=== PATIENT | female | born 1985 | race Caucasian/White ===

== ENCOUNTER 2019-12-24 16:46 | Inpatient (IN) | payer BC, SELFPAY ==
--- NOTE | ~2019-12-24 | CT_ITS ---
EXAMINATION: CT abdomen pelvis w con EXAM DATE: 12/24/2019 18:33 INDICATION: Epigastric pain. TECHNIQUE: Spiral CT of the abdomen and pelvis was performed following intravenous injection of 100 m L Omnipaque 350. Axial, coronal and sagittal images were reviewed. The dose-length product (DLP) fo r this examination was 214.22 mGy-cm. The exposure was tailored according to patient size (auto mA e xposure control), and iterative reconstruction (ASIR) was used as additional dose reduction technique . Comparison is made to prior examination from 07/10/2018. FINDINGS: There is a left liver lobe medial segmental lesion measuring 2.6 cm, with central hypodensi ty which could be a scar. Appearance is consistent with focal nodular hyperplasia, but not diagnostic of that, and cannot identify this on the previous examination. A follow-up nonemergent liver MRI exa mination is recommended for added specificity. There is mild periportal edema. The liver, spleen, adrenal glands and pancreas are otherwise unremarkable. Gallbladder is unremarkab le. No biliary obstruction. Portal and splenic veins are patent. Kidneys enhance symmetrically. T here is no hydronephrosis. The uterus is unremarkable. Small free pelvic fluid. The bladder is und istended at time of imaging. There is no retroperitoneal or pelvic lymphadenopathy. The appendix is normal. The stomach and small bowel are unremarkable. There is moderate amount of c olonic stool. No free intraperitoneal gas. The heart is normal in size. There are no pericardial or pleural effusions. The lung bases are unremarkable. Interval development of mild compression fr acture at the superior endplate of T12, but this does appear chronic. IMPRESSION: 1. Left liver lobe indeterminate lesion, could be focal nodular hyperplasia but follow-up liver MRI examination with contrast is recommended. 2. Nonspecific mild periportal edema. Reviewed, dictated and finalized at location A. DEVELOPER IMPRESSION: 1. Left liver lobe indeterminate lesion, could be focal nodular hyperplasia bu t follow-up liver MRI examination with contrast is recommended. 2. Nonspecific mild periportal edema.
--- NOTE | ~2019-12-24 | US_ITS ---
EXAMINATION: US venous doppler [facility] DATE: 12/26/2019 12:19 INDICATION: Lower limb pain. TECHNIQUE: Grayscale ultrasound images without and with compression and Doppler ultrasound images of the bilateral lower extremity veins were obtained. COMPARISON: None. FINDINGS: The visualized portions of right common femoral vein, profunda (deep) femoral vein, femoral vein, pop liteal vein, peroneal veins, posterior tibial veins, and greater saphenous vein outflow are patent. The visualized portions of left common femoral vein, profunda femoral vein, femoral vein, popliteal v ein, peroneal veins, posterior tibial veins, and greater saphenous vein outflow are patent. IMPRESSION: 1. No deep venous thrombosis. Reviewed, dictated and finalized at location A. 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
--- NOTE | ~2019-12-24 | XR_ITS ---
EXAMINATION: XR chest 2V EXAM DATE: 12/24/2019 18:38 INDICATION: Fever, pain under ribs. On immunosuppressive therapy. TECHNIQUE: Frontal and lateral projections of the chest obtained and reviewed. There is no prior juan jose dy for comparison. FINDINGS: The lungs are clear. There are no pleural effusions. The cardiomediastinal silhouette is within normal limits. There is no pneumothorax suspected. The bones and soft tissues are unremarkab le. IMPRESSION: Normal chest x-ray exam. Reviewed, dictated and finalized at location A. CTOR FIXED INCOME IMPRESSION: Normal chest x-ray exam.
--- NOTE | ~2019-12-24 | MR_ITS ---
EXAMINATION: MR abdomen wo/w con DATE: 12/25/2019 09:52 INDICATION: Liver mass. TECHNIQUE: Magnetic resonance imaging (MRI) of the abdomen was performed without and with 10 mL Multi Lucero intravenous contrast. Sequences included coronal T2-weighted FS FSE, coronal and axial FS FIEST A, axial T2-weighted FSE, coronal LAVA-flex, axial STIR FSE, axial DWI, axial dual-echo T1-weighted F SPGR, and axial LAVA. Postcontrast sequences included coronal LAVA-flex and a time course of axial LA VA. COMPARISON: CT abdomen and pelvis 12/24/2019, 07/10/2018 FINDINGS: The liver demonstrates periportal edema. In segment V of the liver, there is a 2.1 cm mass that demon strates peripheral increased T2-weighted signal intensity and enhancement and a 0.8 cm area of centra l nonenhancement. There is thrombus in right hepatic artery. The gallbladder is normal in size and de monstrates wall thickening, likely interstitial edema. The spleen, pancreas, adrenal glands, and left kidney are normal. There is a 4 mm cyst in right kidney. There are no dilated loops of bowel. There are no pathologically enlarged lymph nodes. There is no free intraperitoneal fluid. IMPRESSION: 1. Thrombus in right hepatic artery. 2. 2.1 cm cystic mass in right hepatic lobe, likely an infarct or abscess. Necrotic neoplasm cannot b e excluded. Consider abdomen MRI without and with contrast in 3 months. Reviewed, dictated and finalized at location A. ASSOC IMPRESSION: 1. Thrombus in right hepatic artery. 2. 2.1 cm cystic mass in right hepatic lobe, likely an infarct or abscess. Necr otic neoplasm cannot be excluded. Consider abdomen MRI without and with contras t in 3 months.
--- NOTE | ~2019-12-24 | CT_ITS ---
EXAMINATION: CT abdomen w con DATE: 12/28/2019 08:23 INDICATION: Right upper quadrant abdominal pain. Liver abscess. TECHNIQUE: Computed tomography (CT) of the abdomen was performed with 100 mL Omnipaque 350 intravenou s contrast. Automated exposure control and iterative reconstruction technique were employed. The dose -length product was 123.06 mGy-cm. COMPARISON: CT abdomen and pelvis 12/24/2019, abdomen MRI 12/25/2019 FINDINGS: The visualized portions of the lung bases demonstrate mild atelectasis. There are small rig ht and trace left pleural effusions. The heart size is normal. No pericardial effusion. There is a 2. 2 cm mass in right hepatic lobe in segment V with hypoattenuating periphery and 1.1 cm central cystic area. The portal vein branches in medial segment right hepatic lobe are small in caliber. There is p eriportal low attenuation in medial segment right hepatic lobe. The gallbladder, liver, pancreas, adr enal glands, and kidneys are normal. There are no dilated loops of bowel. There is subcutaneous gas i n anterior abdominal wall, likely injection sites. There are no pathologically enlarged lymph nodes. There is no free intraperitoneal fluid. There is a chronic compression fracture of T12. IMPRESSION: 1. 2.2 cm cystic mass in right hepatic lobe, stable from 12/24/19, likely an infarct or abscess. Necrot ic neoplasm cannot be excluded. Consider abdomen MRI without and with contrast in 3 months. 2. Stable periportal low attenuation in medial segment right hepatic lobe, likely edema or infarct. Reviewed, dictated and finalized at location A. G[employer] MARKET[employer]UNICATION IMPRESSION: 1. 2.2 cm cystic mass in right hepatic lobe, stable from 12/24/19, likely an infa rct or abscess. Necrotic neoplasm cannot be excluded. Consider abdomen MRI with out and with contrast in 3 months. 2. Stable periportal low attenuation in medial segment right hepatic lobe, like ly edema or infarct.
[2019-12-24 16:51] VITALS: BP 111/73; PULSE 119; RESP 15; TEMP 38.7; O2SAT 100
--- NOTE | 2019-12-24 17:23 | ED.FEVER ---
HPI - Fever General Chief Complaint: Fever Stated Complaint: FEVER Time Seen by Provider: 12/24/19 17:15 History of Present Illness HPI Narrative: Fever and body aches for the past 4 days. SHe has had some mild nasal congestion and epigastric pain with nausea. Otherwise she denies any other specific symptoms. No cough, diarrhea, constipation, dysuria, hematuria. No previous surgeries. She has had 2 negative flu swabs. She was seen by her PCP today and they were concerned about possible pyelonephritis. She is on immunosuppressive medications 2/2 lupus. Related Data Home Medications Medication Instructions Recorded Confirmed alprazolam 0.5 mg tablet 0.5 mg PO TID 12/24/19 belimumab 200 mg/mL subcutaneous 200 mg SUB-Q WEEKLY 12/24/19 syringe drospirenone 3 mg-ethinyl 1 tablet PO DAILY 12/24/19 estradiol 0.02 mg tablet fluoxetine 40 mg capsule 80 mg PO QAM cap 12/24/19 gabapentin 800 mg tablet 800 mg PO TID 12/24/19 hydroxychloroquine 200 mg tablet 200 mg PO BID 12/24/19 mycophenolate mofetil 500 mg tablet 1,500 mg PO Q12H 12/24/19 Allergies Allergy/AdvReac Type Severity Reaction Status Date / Time ciprofloxacin Allergy Unknown unknown Verified 12/24/19 17:10 codeine Allergy Unknown unknown Verified 12/24/19 17:10 sulfamethizole Allergy Unknown unknown Verified 12/24/19 17:10 sulfamethoxazole Allergy Unknown RASH Verified 12/24/19 17:10 trimethoprim Allergy Unknown Unknown Verified 12/24/19 17:10 Review of Systems Review of Systems: All systems reviewed & are unremarkable except as noted in HPI and below Constitutional: Constitutional: Reports chills, Reports fatigue and Reports fever(s) ENT: Reports nasal congestion and Denies sore throat Cardiovascular: Cardiovascular: Denies chest pain Respiratory: Respiratory: Denies chest congestion, Denies cough, Denies dyspnea and Denies wheezing Gastrointestinal: Gastrointestinal: Denies constipation, Denies diarrhea, Reports nausea and Denies vomiting Genitourinary: Genitourinary: Denies hematuria, Denies dysuria, Denies pelvic pain, Reports flank pain and Denies vaginal discharge Musculoskeletal: Musculoskeletal: Reports back pain Neurologic: Denies dizziness and Reports headache(s) [facility] Surgical History Surgical History History of rhinoplasty Family History Family History Father Hypertension Family history of diabetes mellitus in first degree relative Social History Social History Smoking packs per day: 0.5 Smoking cigarettes per day: 10.0 Years smoked: 3 Smoking pack-years: 1.50 Smoking status: Former smoker Tobacco type: cigarettes Second hand tobacco smoke exposure: No Smoking end date: 10/24/09 Alcohol intake: never Substance use: never Substance use type: does not use Gender identity (if verbalized by the patient): Female Exam Const: General: healthy appearing, no acute distress and alert Nutritional Appearance: well nourished Orientation/consciousness: patient oriented x3 HENMT: Head: normal to inspection Eyes: Conjunctivae: conjunctivae normal Pupils: Equal, round and reactive pupils present EOM: EOMs intact bilaterally Neck: Neck: normal visual inspection and no lymphadenopathy Resp: Effort & Inspection: normal respiratory effort Auscultation: clear to auscultation bilaterally Cardio: Rate: tachycardic Rhythm: regular rhythm GI: Inspection: non-distended GI Palp: Yes Soft to palpation, Yes Tenderness to palpation present (GI) (epigastric, mild), No Guarding due to palpation present (GI) and No Rebound tenderness present Skin: General skin exam: normal color Rashes: no rashes Wounds: no wounds Neuro: General: patient oriented x3, moves all extremities and no focal motor deficits Speech: normal speech Extrem: General: normal t
[2019-12-24 17:48] LABS: Basophils Percent Auto 0.3 % (0.2-1.2); Eosinophils Percent Auto 1.2 % (0-4.4); Hematocrit 37.3 % (37.0-47.0); Hemoglobin 12.2 g/dL (12.0-15.0); Immature Granulocyte Absolute 0.02 K/mm3 (0.00-0.031); Immature Granulocyte Percent A 0.6 % (0-0.5); Lymphocytes Absolute Auto 0.31 K/mm3 (0.9-3.2); Lymphocytes Percent Auto 9.2 % (18.3-44.2); Mean Corpuscular HGB Conc 32.7 g/dl (32-36); Mean Corpuscular Hemoglobin 30.6 pg (26-34); Mean Corpuscular Volume 93.5 fl (80-100); Mean Platelet Volume 10.2 fl (7.4-10.4); Monocytes Absolute Auto 0.4 K/mm3 (0.1-0.6); Monocytes Percent Auto 11.3 % (2.6-8.5); Neutrophils Absolute Auto 2.6 K/mm3 (1.3-6.7); Neutrophils Percent Auto 77.4 % (45.5-73.1); Platelet Count Result 187 k/mm3 (150-375); Red Blood Count 3.99 M/mm3 (4.2-5.4); Red Cell Distribution Width 11.9 % (11.5-14.5); White Blood Count 3.4 K/mm3 (4.5-10.0)
[2019-12-24] MEDS: SODIUM CHLORIDE 0.9% IV 1,000 ML 999 ML IV CONT (17:50)
[2019-12-24] MEDS: KETOROLAC 30 MG/ML VIAL (*BKC) IV PUSH (17:53)
[2019-12-24] MEDS: METOCLOPRAMIDE HCL INJ 10 MG/2 ML VIAL IV PUSH (17:54)
[2019-12-24 17:57] LABS: INR 0.9; Prothrombin Time 11.9 Seconds (11.1-14.7)
[2019-12-24 17:58] LABS: Partial Thromboplastin Time 29.6 SECONDS (22.3-36.8)
[2019-12-24 18:02] LABS: Alanine Aminotransferase 24 U/L (4-35); Albumin Level 3.8 g/dL (3.5-5.1); Alkaline Phosphatase 72 U/L (38-126); Aspartate Amino Transferase 40 U/L (14-36); Bilirubin,Total 0.4 mg/dL (0.2-1.3); Blood Urea Nitrogen 5 mg/dL (7-17); CRP 6.6 mg/dL (<1.0); Calcium 8.2 mg/dL (8.4-10.2); Carbon Dioxide 22 mmol/L (22-30); Chloride 96 mmol/L (98-107); Estimated CRCL calculation 93 ml/min; Estimated Glomerular Filt Rate > 60; Glucose 98 mg/dL (65-105); Potassium 3.5 mmol/L (3.4-5.0); Sodium 131 mmol/L (137-145)
[2019-12-24 18:09] LABS: Lactic Acid Reflex 1.2 mmol/L (0.7-2.1)
[2019-12-24 18:12] LABS: Add Urine Microscopic? YES; Appearance Urine Clear (Clear); Bacteria Urine Trace /hpf; Bilirubin Urine Negative (Negative); Blood Urine Negative (Negative); Color Urine Yellow (Yellow); Glucose Urine UA Negative (Negative); Ketones Urine Negative (Negative); Leukocyte Esterase Ur 1+ LEU/UL (Negative); Mucus Urine Rare /lpf; Nitrate Urine Negative (Negative); Protein Urine Negative (Negative); Specific Grav Ur 1.013 (1.001-1.035); Squamous Epithelial Cell Urine Many /hpf (Few); Urobilinogen Urine Negative mg/dL (<2.0)
--- NOTE | 2019-12-24 20:29 | PM.IMHP ---
H&P: HPI History of Present Illness Chief complaint: febrile illness,liver lesion Narrative: This is a 34 year old female with known history of SLE and Sjogren syndrome who presented to the hospital with a complaint of fever, epigastric pain, and body aches for the past 4 days. Associated symptoms include nausea but no vomiting or diarrhea. She denies any coughing. No burning urination or urinary frequency is reported. She complains of right lower back pain. She also complains of aches and pains diffusely. The patient is chronically on immunosuppressive medications for her SLE. Tonight while in the ER the patient was incidently found to have a left liver lobe indeterminate lesion with nonspecific mild periportal edema. No other complaints tonight. Review of Systems Review of Systems: All systems reviewed & are unremarkable except as noted in HPI and below PMFSH Surgical History Surgical History History of rhinoplasty Family History Family History Father Hypertension Family history of diabetes mellitus in first degree relative Social History Social History Smoking packs per day: 0.5 Smoking cigarettes per day: 10.0 Years smoked: 3 Smoking pack-years: 1.50 Smoking status: Never smoker Tobacco type: cigarettes Second hand tobacco smoke exposure: No Smoking end date: 10/24/09 Alcohol intake: current Substance use: current Substance use type: does not use Gender identity (if verbalized by the patient): Female Spiritual care concerns: No Agree to blood products: Yes Meds Home Medications and Allergies Home Medications Medication Instructions Recorded Confirmed Type alprazolam 0.5 mg tablet 0.5 mg PO TID PRN 12/24/19 12/24/19 History belimumab 200 mg/mL subcutaneous 200 mg SUB-Q WEEKLY 12/24/19 12/24/19 History syringe drospirenone 3 mg-ethinyl 1 tablet PO DAILY 12/24/19 12/24/19 History estradiol 0.02 mg tablet fluoxetine 40 mg capsule 80 mg PO QAM cap 12/24/19 12/24/19 History gabapentin 800 mg tablet 800 mg PO TID 12/24/19 12/24/19 History hydroxychloroquine 200 mg tablet 200 mg PO BID 12/24/19 12/24/19 History mycophenolate mofetil 500 mg tablet 1,500 mg PO Q12H 12/24/19 12/24/19 History Allergies Allergy/AdvReac Type Severity Reaction Status Date / Time ciprofloxacin Allergy Unknown unknown Verified 12/24/19 17:10 codeine Allergy Unknown unknown Verified 12/24/19 17:10 sulfamethizole Allergy Unknown unknown Verified 12/24/19 17:10 sulfamethoxazole Allergy Unknown RASH Verified 12/24/19 17:10 trimethoprim Allergy Unknown Unknown Verified 12/24/19 17:10 Vital Signs Vital Signs - 24 hr 12/24/19 16:51 Temperature 38.7 C H Pulse Rate 119 H Respiratory Rate 15 Blood Pressure 111/73 Pulse Oximetry 100 Exam Const: General: cooperative, no acute distress, alert and awake Nutritional Appearance: well nourished Orientation/consciousness: patient oriented x3 HENMT: Head: normal to inspection General nose exam: Normal external nose present Face and sinus: normal facial exam Mouth: Yes Normal oral and palatal mucosa present and Yes oropharynx normal Eyes: Pupils: Equal, round and reactive pupils present EOM: EOMs intact bilaterally Neck: Neck: supple and no JVD Thyroid: thyroid normal Lymphatic: lymphadenopathy not noted Resp: Effort & Inspection: normal respiratory effort Auscultation: clear to auscultation bilaterally Cardio: Rate: regular rate Rhythm: regular rhythm Heart sounds: no murmurs GI: Inspection: normal to inspection Auscultation: normal bowel sounds Skin: General skin exam: normal color and no rashes or lesions noted Neuro: General: patient oriented x3 Cranial nerves: Yes CN's II-XII intact bilaterally and Yes Equal, round and reactive pupils present Speech: normal speech M
[2019-12-24 21:01] VITALS: BP 110/54; PULSE 81; RESP 20; TEMP 36.7; O2SAT 99; BMI 19.5
--- NOTE | 2019-12-24 21:21 | ADMGEN ---
This patient, Nehal Grier, was admitted to 2 Medical Room 260-. Patient/family oriented to hospital policies and general routines including ID bracelet, bed and alarms, visiting hours, pain management, procedures, bathroom and other care routines, personal items, smoking policy, room service/diet, and visiting hours. Valuables list has been completed. Information on how to activate the Rapid Response Team has been discussed. Patient/Family are encouraged to report perceived risks to care and to ask questions if they do not understand what they are told or what they should do.
[2019-12-24] MEDS: LACTATED RINGERS 1,000 ML 125 ML IV CONT (21:40)
[2019-12-25 04:00] VITALS: BP 98/57; PULSE 87; RESP 18; TEMP 37.2; O2SAT 100
[2019-12-25 05:29] LABS: Basophils Percent Auto 0.6 % (0.2-1.2); Eosinophils Absolute Auto 0.1 K/mm3 (0-0.3); Eosinophils Percent Auto 1.8 % (0-4.4); Hematocrit 32.2 % (37.0-47.0); Hemoglobin 10.4 g/dL (12.0-15.0); Immature Granulocyte Absolute 0.01 K/mm3 (0.00-0.031); Immature Granulocyte Percent A 0.3 % (0-0.5); Lymphocytes Absolute Auto 0.36 K/mm3 (0.9-3.2); Lymphocytes Percent Auto 10.8 % (18.3-44.2); Mean Corpuscular HGB Conc 32.3 g/dl (32-36); Mean Corpuscular Hemoglobin 30.2 pg (26-34); Mean Corpuscular Volume 93.6 fl (80-100); Mean Platelet Volume 10.1 fl (7.4-10.4); Monocytes Absolute Auto 0.4 K/mm3 (0.1-0.6); Monocytes Percent Auto 10.8 % (2.6-8.5); Neutrophils Absolute Auto 2.5 K/mm3 (1.3-6.7); Neutrophils Percent Auto 75.7 % (45.5-73.1); Platelet Count Result 152 k/mm3 (150-375); Red Blood Count 3.44 M/mm3 (4.2-5.4); Red Cell Distribution Width 11.9 % (11.5-14.5); White Blood Count 3.3 K/mm3 (4.5-10.0)
[2019-12-25 05:39] LABS: Blood Urea Nitrogen 3 mg/dL (7-17); Calcium 7.7 mg/dL (8.4-10.2); Carbon Dioxide 23 mmol/L (22-30); Chloride 100 mmol/L (98-107); Estimated CRCL calculation 107 ml/min; Estimated Glomerular Filt Rate > 60; Glucose 100 mg/dL (65-105); Potassium 3.5 mmol/L (3.4-5.0); Sodium 134 mmol/L (137-145)
[2019-12-25] MEDS: LACTATED RINGERS 1,000 ML 125 ML IV CONT (05:48)
[2019-12-25] MEDS: GABAPENTIN 400 MG CAPSULE 800 MG PO ×3 (10:12→17:38)
[2019-12-25] MEDS: HYDROXYCHLOROQUINE SULFATE 200 MG TABLET PO ×2 (10:13→17:38)
--- NOTE | 2019-12-25 10:13 | PM.IMPN ---
Progress Note: A&P Assessment and Plan (1) Acute febrile illness: Code(s): R50.9 - Fever, unspecified Status: Acute Assessment and Plan: The patient appears to have a febrile viral illness w/ epigastric discomfort, fever, aches and pains. CT abd/pelvis only demonstrated a liver lesion of unknown duration. The patient could have enteritis with her current symptoms. Broad spectrum antibitoics were empirically started in the ER. We will obtain blood cultures and wean off of antibiotics when appropriate. She is feeling slightly better today. Last recorded fever was yesterday at 1700 and she had slight fever/diaphoresis last night. Due to being immunocompromised, continued fevers will continue monitoring her again overnight while pending, urine culture, blood culture and MRI Abd findings. Continue supportive care with IV fluids, antipyretics, antiemetics as needed overnight. (2) Lesion of liver: Code(s): K76.9 - Liver disease, unspecified Status: Acute Assessment and Plan: Acute vs. Chronic? Likely a hepatic adenoma. MRI Abdomen with and without contrast ordered and pending. (3) SLE (systemic lupus erythematosus): Qualifiers: Systemic lupus erythematosus type: unspecified Systemic lupus erythematosus organ involvement: unspecified Qualified Code(s): M32.9 - Systemic lupus erythematosus, unspecified Code(s): M32.9 - Systemic lupus erythematosus, unspecified Status: Chronic Assessment and Plan: Continue home meds. (4) Sicca syndrome: Code(s): M35.00 - Sicca syndrome, unspecified Status: Chronic Assessment and Plan: stable. Time Spent With Patient Time with patient: 25 - 35 minutes Subjective Date/time seen: 12/25/19 10:13 Interval history: Date of Service 12/25/2019: She reports feeling better today. She still reports some epigastric and right upper quadrant abdominal discomfort with palpation and when taking a deep breath. She reports it feeling achy and this has been going on since and has improved overall. She reported having diaphoresis and slight fever last night. She denies any chest pain, shortness of breath, cough, nausea, vomiting, diarrhea, constipation, leg swelling, headache, lightheadedness, dizziness or any other symptoms at this time. Review of Systems Review of Systems: All systems reviewed & are unremarkable except as noted in HPI and below Exam Narrative: Exam Narrative: General: 34-year-old woman laying flat in bed with head elevated at 45 degrees. Appears comfortable. In no acute distress. Skin: No jaundice or cyanosis. Good skin turgor. Neck: Full range of motion. Supple. Respiratory: Lungs are clear to auscultation bilaterally. No bony chest wall tenderness. Cardiovascular: The heart has a regular rate and rhythm without murmur Lower extremities: No lower extremity edema. Distal pulses are easily palpated. No calf tenderness to palpation. Gastrointestinal: Slight tenderness to palpation of epigastric area. The abdomen is soft and nondistended with active bowel sounds. Psychiatric: Lucid and oriented. Memory intact. Neurologic: No focal deficits. Speech is clear. No facial drooping. Objective Data Vital Signs Vital Signs: Vital Signs - 24 hr 12/24/19 16:51 12/24/19 21:01 12/25/19 04:00 Temperature 101.6 F H 98.1 F 98.9 F Pulse Rate 119 H 81 87 Respiratory Rate 15 20 18 Blood Pressure 111/73 110/54 L 98/57 L Pulse Oximetry 100 99 100 Intake/Output Intake/Output: Intake & Output 12/22/19 12/23/19 12/24/19 12/25/19 23:59 23:59 23:59 23:59 Intake Total 1100 1100 Output Total 800 Balance 1100 300 Meds/Results Medications: Active Medications Generic Name Dose Route Start Last Admin Trade Name Freq PRN Reason Sto
--- NOTE | 2019-12-25 10:42 | PHAR ---
HOME MEDS VERIFIED BY PHARMACY: MYCOPHENOLATE 500MG TABLETS TAKE 3 TABLETS PO BID RX#[id number] GIANVI (DROSPERINON/ETHINYL ESTRADIOL) 1 TABET PO DAILY
[2019-12-25 14:00] VITALS: BP 118/70; PULSE 96; RESP 16; TEMP 37.4; O2SAT 91
[2019-12-25 17:33] VITALS: TEMP 39.5
[2019-12-25] MEDS: ENOXAPARIN 60 MG/0.6 ML SYRINGE SUB-Q (17:37)
[2019-12-25 18:03] VITALS: TEMP 37.2
[2019-12-25] MEDS: SODIUM CHLORIDE 0.9% IV 1,000 ML 80 ML IV CONT (20:36)
[2019-12-25 22:00] VITALS: BP 96/62; PULSE 92; RESP 20; TEMP 37.1; O2SAT 100
[2019-12-26] VITALS (7 sets, daily range): BP systolic 105–107; BP diastolic 63–69; PULSE 97–99; RESP 16–20; TEMP 36.6–38.7; O2SAT 98–100
[2019-12-26] MEDS: ACETAMINOPHEN 325 MG TABLET 650 MG PO ×2 (03:28→21:24)
[2019-12-26 06:01] LABS: Basophils Percent Auto 0.6 % (0.2-1.2); Eosinophils Absolute Auto 0.1 K/mm3 (0-0.3); Eosinophils Percent Auto 2.9 % (0-4.4); Hematocrit 30.1 % (37.0-47.0); Hemoglobin 9.9 g/dL (12.0-15.0); Lymphocytes Absolute Auto 0.42 K/mm3 (0.9-3.2); Lymphocytes Percent Auto 12.3 % (18.3-44.2); Mean Corpuscular HGB Conc 32.9 g/dl (32-36); Mean Corpuscular Hemoglobin 30.7 pg (26-34); Mean Corpuscular Volume 93.5 fl (80-100); Mean Platelet Volume 10.6 fl (7.4-10.4); Monocytes Absolute Auto 0.5 K/mm3 (0.1-0.6); Neutrophils Absolute Auto 2.4 K/mm3 (1.3-6.7); Neutrophils Percent Auto 70.2 % (45.5-73.1); Nucleated Red Blood Cells Absolute Auto 0.1 K/mm3 (0.0-0.012); Nucleated Red Blood Cells Perc 1.8 % (0.0-0.2); Platelet Count Result 155 k/mm3 (150-375); Red Blood Count 3.22 M/mm3 (4.2-5.4); Red Cell Distribution Width 11.9 % (11.5-14.5); White Blood Count 3.4 K/mm3 (4.5-10.0)
[2019-12-26] MEDS: ENOXAPARIN 60 MG/0.6 ML SYRINGE SUB-Q ×2 (06:05→17:33)
[2019-12-26 06:11] LABS: Alanine Aminotransferase 48 U/L (4-35); Alkaline Phosphatase 79 U/L (38-126); Aspartate Amino Transferase 65 U/L (14-36); Bilirubin,Total 0.3 mg/dL (0.2-1.3); Calcium 7.9 mg/dL (8.4-10.2); Carbon Dioxide 25 mmol/L (22-30); Chloride 103 mmol/L (98-107); Estimated CRCL calculation 93 ml/min; Estimated Glomerular Filt Rate > 60; Glucose 100 mg/dL (65-105); Potassium 3.3 mmol/L (3.4-5.0); Sodium 133 mmol/L (137-145)
[2019-12-26 07:18] LABS: Blood Urea Nitrogen < 2 mg/dL (7-17)
--- NOTE | 2019-12-26 10:06 | PM.IMPN ---
Progress Note: A&P Assessment and Plan (1) Liver abscess: Code(s): K75.0 - Abscess of liver Status: Acute Assessment and Plan: MRI abdomen pelvis showed 2.1 cm cystic mass in right hepatic lobe, likely an infarct or abscess. Necrotic neoplasm cannot be excluded. Due to her fever of unknown origin she most likely has a right hepatic lobe abscess. She was continued on IV Zosyn Infectious Disease was consulted on the patient. Continue monitor her vital signs and fevers. Further input from ID is appreciated. (2) Thrombosis of right hepatic artery: Code(s): I74.8 - Embolism and thrombosis of other arteries Status: Acute Assessment and Plan: MRI abdomen pelvis showed thrombus in right hepatic artery. 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 She was started on subcu Lovenox by weight Q 12 hr. She will need to remain on anticoagulation for at least 3-6 months. Will continue monitoring her symptoms. (3) Acute febrile illness: Code(s): R50.9 - Fever, unspecified Status: Acute Assessment and Plan: After receiving the MRI results which shows the patient likely has a liver abscess which could be the underlying cause of her fevers. Broad spectrum antibitoics were empirically started in the ER, IV Zosyn. Blood cultures are negative at this time. Infectious disease, Dr. Rodriguez was consulted on the patient. She had a fever last night at 5:30 p.m. which was 103.1F and then again at 3:00 a.m. this morning them is 101.7F. Continue supportive care with IV fluids, IV antibiotics, antipyretics, antiemetics as needed overnight. (4) SLE (systemic lupus erythematosus): Qualifiers: Systemic lupus erythematosus organ involvement: unspecified Systemic lupus erythematosus type: unspecified Qualified Code(s): M32.9 - Systemic lupus erythematosus, unspecified Code(s): M32.9 - Systemic lupus erythematosus, unspecified Status: Chronic Assessment and Plan: Continue home meds. (5) Sicca syndrome: Code(s): M35.00 - Sicca syndrome, unspecified Status: Chronic Assessment and Plan: stable. Time Spent With Patient Time with patient: 25 - 35 minutes Subjective Date/time seen: 12/26/19 10:06 Interval history: Date of Service 12/26/2019: She reports having increased abdominal pain since last night. She had a fever last night and she felt that her epigastric/right upper quadrant abdominal pain became constant rated 5 per 6/10 and the pain would wax and wane with pain increasing to 8 out of 10. She denies any nausea, vomiting associated. She reports increased abdominal pain with trying to take a deep breath, movement, palpation. She reports her abdomen feels like, pressure, achy, tender . She denies any chest pain, shortness of breath, cough, diarrhea, leg swelling, headache, lightheadedness, dizziness or any other symptoms at this time. She does report having some slight constipation and will take some MiraLax. Review of Systems Review of Systems: All systems reviewed & are unremarkable except as noted in HPI and below Exam Narrative: Exam Narrative: General: 34-year-old woman laying flat in bed with head elevated at 45 degrees. Appears comfortable. In no acute distress. Skin: No jaundice or cyanosis. Good skin turgor. Neck: Full range of motion. Supple. Respiratory: Lungs are clear to auscultation bilaterally. No bony chest wall tenderness. Cardiovascular: The heart has a regular rate and rhythm without murmur Lower extremities: No lower extremity edema. Distal pulses are easily palpated. No
[2019-12-26] MEDS: FLUOXETINE HCL 20 MG CAP 80 MG PO (10:11)
[2019-12-26] MEDS: GABAPENTIN 400 MG CAPSULE 800 MG PO ×3 (10:11→17:32)
[2019-12-26] MEDS: HYDROXYCHLOROQUINE SULFATE 200 MG TABLET PO ×2 (10:11→17:32)
[2019-12-26] MEDS: POTASSIUM CHLORIDE 20 MEQ TABLET 40 MEQ PO (10:18)
[2019-12-26] MEDS: LORATADINE 10 MG TABLET PO (10:19)
--- NOTE | 2019-12-26 10:45 | PC.NURSE ---
Patient c/o worsening abdominal discomfort today. Requesting something stronger than Tylenol for pain. Also c/o intermittent cramps to left calf. Notified Elisha PHILLIPS of both issues.
--- NOTE | 2019-12-26 12:16 | WPDINFPN2 ---
Progress Note: A&P Assessment and Plan (1) Liver abscess: Code(s): K75.0 - Abscess of liver Status: Acute Assessment and Plan: 1. Liver abscess, due to infarct 2. Lupus 3. Immunosuppressed REC PipTazo # 2, continue. Hold Belimumab and mycophenolate. Repeat exam and CT over time, with percutaneous or open drainage if she does not rapidly improve. Subjective Date/time seen: 12/26/19 12:16 Objective Data Vital Signs Vital Signs: Vital Signs - 24 hr 12/25/19 14:00 12/25/19 17:33 12/25/19 18:03 Temperature 37.4 C 39.5 C H 37.2 C Pulse Rate 96 Respiratory Rate 16 Blood Pressure 118/70 Pulse Oximetry 91 12/25/19 22:00 12/26/19 03:00 12/26/19 03:28 Temperature 37.1 C 38.7 C H 38.7 C H Pulse Rate 92 Respiratory Rate 20 Blood Pressure 96/62 L Pulse Oximetry 100 12/26/19 04:13 12/26/19 06:00 12/26/19 11:59 Temperature 36.6 C 36.6 C 37.5 C Pulse Rate 99 Respiratory Rate 18 Blood Pressure 105/63 Pulse Oximetry 98 Intake/Output Intake/Output: Intake & Output 12/23/19 12/24/19 12/25/19 12/26/19 23:59 23:59 23:59 23:59 Intake Total 1100 3900 850 Output Total 2400 1800 Balance 1100 1500 -950 Meds/Results Medications: Active Medications Generic Name Dose Route Start Last Admin Trade Name Freq PRN Reason Stop Dose Admin Acetaminophen 650 mg 12/26/19 03:13 12/26/19 03:28 Tylenol Tablet PO 650 mg Q4H PRN Administration Mild Pain (1-3) or Fever Hydrocodone Bitart/Acetaminophen 1 tab 12/26/19 11:02 12/26/19 11:56 [place] 5-325 Mg PO 1 tab Q4H PRN Administration Pain Rated 4-6 Alprazolam 0.5 mg 12/25/19 04:46 Xanax PO TID PRN Anxiety Enoxaparin Sodium 60 mg 12/26/19 06:00 12/26/19 06:05 Lovenox SUB-Q 60 mg Q12H RADHA Administration Fluoxetine HCl 80 mg 12/26/19 09:00 12/26/19 10:11 Prozac PO 80 mg QAM RADHA Administration Gabapentin 800 mg 12/25/19 09:00 12/26/19 10:11 Neurontin PO 800 mg TID RADHA Administration Hydroxychloroquine Sulfate 200 mg 12/25/19 08:00 12/26/19 10:11 Plaquenil PO 200 mg BIDWM RADHA Administration Piperacillin/Tazobactam/Dextrose 3.375 gm in 50 mls @ 100 mls/hr 12/25/19 01:00 12/26/19 06:31 Zosyn 3.375 Gm/D5w 50ml Pm IVPB Infused Q6HR RADHA Infusion Loratadine 10 mg 12/26/19 07:51 12/26/19 10:19 Claritin PO 10 mg DAILY PRN Administration runny nose Morphine Sulfate 2 mg 12/26/19 11:02 Morphine Sulfate Inj IV PUSH Q4H PRN Pain Rated 7-10 Non-Formulary Medication 200 mg 12/25/19 09:00 Belimumab [Benlysta] SUB-Q 01/24/20 09:01 WEEKLY RADHA Polyethylene Glycol 17 gm 12/26/19 11:04 Miralax PO QAM PRN Constipation Radiology Results: ITS Impressions Abdomen/Pelvis CT 12/24/19 18:37 IMPRESSION: 1. Left liver lobe indeterminate lesion, could be focal nodular hyperplasia but follow-up liver MRI examination with contrast is recommended. 2. Nonspecific mild periportal edema. Chest X-Ray 12/24/19 19:06 IMPRESSION: Normal chest x-ray exam. Abdomen MRI 12/25/19 09:59 IMPRESSION: 1. Thrombus in right hepatic artery. 2. 2.1 cm cystic mass in right hepatic lobe, likely an infarct or abscess. Necrotic neoplasm cannot be excluded. Consider abdomen MRI without and with contrast in 3 months. Labs Labs: Laboratory Results - last 24 hr 12/26/19 12/26/19 05:05 05:05 WBC 3.4 L RBC 3.22 L Hgb 9.9 L Hct 30.1 L MCV 93.5 MCH 30.7 MCHC 32.9 RDW 11.9 Plt Count 155 MPV 10.6 H Immature Gran % (Auto) 0.0 Neut % (Auto) 70.2 Lymph % (Auto) 12.3 L Alfalfa % (Auto) 14.0 H Eos % (Auto) 2.9 Baso % (Auto) 0.6 Lymph # (Auto) 0.42 L Alfalfa # (Auto) 0.5 Eos # (Auto) 0.1 Baso # (Auto) 0.0 Abs Immat Gran (auto) 0.00 Absolute Neuts (auto) 2.4 Absolute Nucleated RBC 0.1 H Nucleated RBC % 1.8 H Sodium 133 L Pota
--- NOTE | 2019-12-26 14:45 | CONS_ITS ---
DATE OF CONSULTATION: 12/26/2019 REASON FOR CONSULTATION: Liver abscess. HISTORY OF PRESENT ILLNESS: The patient is a 34-year-old female who had an episode of pyelonephritis in 2013. She does not recall if bloodstream infection was found. There is full resolution in her symptoms. She was on an antibiotic of unknown identity for persistent sinusitis, at least 4 weeks ago. Within several months of her kidney infection, she was diagnosed with Sjogren's syndrome and about 2 years later with lupus. She has been on Plaquenil for long-term with addition of mycophenolate soon thereafter and over the last [id number] has been on Belimumab injection once weekly. She has not been on steroids in the recent past. She was in her usual state of health until 5 days before admission when she had new onset of right upper quadrant and epigastric pain with occasional radiation into the low back and into the right shoulder associated with nausea and anorexia. She thinks she may have lost several pounds over the subsequent days. She also had fever the same day rising as high as 39.7 at home. She also had drenching sweats and rigors. The pain became more intense over the next several days. [facility] where apparently no interventions were undertaken. She saw her primary care physician on the day of admission, was sent to the emergency room when she was found to have a temperature of 39.9. Here, she has been started on piperacillin tazobactam, now day 2 and consultation requested. The pain persists. Her appetite is diminished, though not absent. She has had no vomiting. She has had some mild constipation. No diarrhea. No bleeding. No previous episodes of abdominal pain such as this and no previous abdominal surgery. ALLERGIES: CIPROFLOXACIN, UNKNOWN REACTION. TRIMETHOPRIM SULFA, RASH. CODEINE, UNKNOWN REACTION. HABITS: Rare alcohol. No tobacco. No illicit drugs. PRESENT MEDICATIONS: She remains on the hydroxychloroquine. Other immunosuppressants on hold. PAST MEDICAL HISTORY: Soccer injury at the age of 16 with nasal reconstruction being required and she relates her chronic sinus difficulties to this injury. She has the above autoimmune disease. No other chronic medical illnesses. FAMILY HISTORY: Hypertension and diabetes. SOCIAL HISTORY: She is single. Works . Lives locally. REVIEW OF SYSTEMS: 14-point review otherwise negative. PHYSICAL EXAMINATION: GENERAL: This is a pleasant female, appears her actual age. No acute distress. VITAL SIGNS: Shortly after arrival, her temperature kedar to 39.9, has declined since then, though T-max 39.5 past 24 hours, pulse 99, respirations 18, 105/63, 98% room air. SKIN: No generalized rashes. Warm and dry. EENT: Pupils are equal, round, and reactive to light. Conjunctivae are normal. No paranasal sinus, erythema, edema, or tenderness. The oropharynx, oral mucosa entirely normal. Teeth in excellent repair. NECK: No meningismus, mass, tenderness. Trachea deviation. LUNGS: Clear to auscultation and percussion with good aeration. NODES: No cervical adenopathy. BACK: She has no spinal tenderness and no CVAT. CARDIAC: Regular rate and rhythm. No murmurs or gallops. Pulses are 2+ and equal. ABDOMEN: Tender with voluntary guarding, right upper quadrant. No referred tenderness. She has no flank tenderness. Bowel sounds are hypoactive. Abdomen is nondistended. EXTREMITIES: Well perfused. No clubbing, cyanosis, or edema. No venous varicosities. NEUROLOGIC: Awake, alert, oriented, and appropriate. LABORATORY DATA: Blood cultures, no growth after a very short incubation. Urine culture with group B strep. White count 3.4, similar to admission. White blood c
[2019-12-27] VITALS (9 sets, daily range): BP systolic 100–107; BP diastolic 55–68; PULSE 91–98; RESP 16–21; TEMP 36.6–37.6; O2SAT 96–100
[2019-12-27] MEDS: ENOXAPARIN 60 MG/0.6 ML SYRINGE SUB-Q ×2 (05:59→18:19)
[2019-12-27 06:05] LABS: Basophils Percent Auto 0.7 % (0.2-1.2); Eosinophils Absolute Auto 0.1 K/mm3 (0-0.3); Hematocrit 33.6 % (37.0-47.0); Hemoglobin 10.8 g/dL (12.0-15.0); Immature Granulocyte Absolute 0.01 K/mm3 (0.00-0.031); Immature Granulocyte Percent A 0.2 % (0-0.5); Lymphocytes Absolute Auto 0.45 K/mm3 (0.9-3.2); Mean Corpuscular HGB Conc 32.1 g/dl (32-36); Mean Corpuscular Hemoglobin 30.2 pg (26-34); Mean Corpuscular Volume 93.9 fl (80-100); Mean Platelet Volume 10.2 fl (7.4-10.4); Monocytes Absolute Auto 0.4 K/mm3 (0.1-0.6); Monocytes Percent Auto 8.8 % (2.6-8.5); Neutrophils Absolute Auto 3.2 K/mm3 (1.3-6.7); Neutrophils Percent Auto 77.3 % (45.5-73.1); Platelet Count Result 186 k/mm3 (150-375); Red Blood Count 3.58 M/mm3 (4.2-5.4); Red Cell Distribution Width 11.9 % (11.5-14.5); White Blood Count 4.1 K/mm3 (4.5-10.0)
[2019-12-27 06:09] LABS: Alanine Aminotransferase 45 U/L (4-35); Albumin Level 3.2 g/dL (3.5-5.1); Alkaline Phosphatase 81 U/L (38-126); Aspartate Amino Transferase 46 U/L (14-36); Bilirubin,Total 0.4 mg/dL (0.2-1.3); Calcium 8.1 mg/dL (8.4-10.2); Carbon Dioxide 25 mmol/L (22-30); Chloride 98 mmol/L (98-107); Estimated CRCL calculation 93 ml/min; Estimated Glomerular Filt Rate > 60; Glucose 100 mg/dL (65-105); Magnesium 1.6 mg/dL (1.6-2.3); Potassium 3.7 mmol/L (3.4-5.0); Sodium 136 mmol/L (137-145)
[2019-12-27 06:17] LABS: Blood Urea Nitrogen < 2 mg/dL (7-17)
[2019-12-27] MEDS: MAGNESIUM SULF 2 GM/WATER 50ML 2 GM/50 ML BAG IVPB (09:15)
[2019-12-27] MEDS: HYDROXYCHLOROQUINE SULFATE 200 MG TABLET PO ×2 (09:19→18:19)
[2019-12-27] MEDS: FLUOXETINE HCL 20 MG CAP 80 MG PO (09:19)
[2019-12-27] MEDS: GABAPENTIN 400 MG CAPSULE 800 MG PO ×3 (09:19→18:19)
--- NOTE | 2019-12-27 10:34 | PM.IMPN ---
Progress Note: A&P Assessment and Plan (1) Abdominal pain: Code(s): R10.9 - Unspecified abdominal pain Status: Acute Assessment and Plan: The patient has been having increased pain over the last few days. She came in initially with slight epigastric/RUQ pain. Today, the patient reported increased pain but it was improved with Aurora. Explained to the patient if symptoms become worse we can repeat CT with Contrast imaging to further evaluate the abscess. At this time we will continue pain control with PO and IV pain medications PRN and monitor vitals and leukocytosis. (2) Liver abscess: Code(s): K75.0 - Abscess of liver Status: Acute Assessment and Plan: MRI abdomen pelvis showed 2.1 cm cystic mass in right hepatic lobe, likely an infarct or abscess. Necrotic neoplasm cannot be excluded. She was continued on IV Zosyn Infectious Disease evaluated the patient and believes abscess is secondary to Right hepatic lobe infarct. He wished to continue IV Zosyn and if symptoms become worse repeat imaging can be completed. Continue monitor her vital signs and fevers. Further input from ID is appreciated. (3) Thrombosis of right hepatic artery: Code(s): I74.8 - Embolism and thrombosis of other arteries Status: Acute Assessment and Plan: MRI abdomen pelvis showed thrombus in right hepatic artery. 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 She was started on subcu Lovenox by weight Q 12 hr. Will continue monitoring her symptoms. (4) Acute febrile illness: Code(s): R50.9 - Fever, unspecified Status: Acute Assessment and Plan: After receiving the MRI results which shows the patient likely has a liver abscess which could be the underlying cause of her fevers. Broad spectrum antibitoics were empirically started in the ER, IV Zosyn. Blood cultures are negative at this time. Infectious disease, Dr. Rodriguez was consulted on the patient. She had a low grade fever 99.8F at 1400 yesterday otherwise no recorded fevers overnight. fever last night at 5:30 p.m. which was 103.1F and then again at 3:00 a.m. this morning them is 101.7F. She is nontachycardic, normal BP, normal respiration rate and oxygenation, stable leukocytosis. Continue supportive care with IV antibiotics, antipyretics, antiemetics as needed overnight. (5) SLE (systemic lupus erythematosus): Qualifiers: Systemic lupus erythematosus type: unspecified Systemic lupus erythematosus organ involvement: unspecified Qualified Code(s): M32.9 - Systemic lupus erythematosus, unspecified Code(s): M32.9 - Systemic lupus erythematosus, unspecified Status: Chronic Assessment and Plan: Will hold two of the patients home medications secondary to acute illness- Belimumab and mycophenolate Will continue Hydroxychloroquine. 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 Time Spent With Patient Time with patient: 25 - 35 minutes Subjective Date/time seen: 12/27/19 10:34 Interval history: Date of Service 12/27/2019: She reports having increased abdominal pain this morning after waking up. Yesterday, her pain was better after taking Aurora with her last dose around 0300 today. Then, she woke up and went to walk to the bathroom this morning and her pain became more intense and she was doubled over in pain. Since receiving another Aurora her pain has improved. Pain is mostly located in epigastric/right upper quadrant area, rated a
[2019-12-27] MEDS: PANTOPRAZOLE SODIUM IV 40 MG VIAL IV PUSH ×2 (11:18→20:37)
[2019-12-27] MEDS: polyethylene glycoL 3350 17 GM POWD.PACK PO (11:20)
[2019-12-27] MEDS: MORPHINE SULFATE 2 MG/ML INJ IV PUSH ×2 (13:42→18:35)
[2019-12-27] MEDS: ACETAMINOPHEN 325 MG TABLET 650 MG PO ×2 (13:42→18:45)
--- NOTE | 2019-12-27 15:03 | WPDINFPN2 ---
Progress Note: A&P Assessment and Plan (1) Liver abscess: Code(s): K75.0 - Abscess of liver Status: Acute Assessment and Plan: 1. Liver abscess, due to infarct. Still with pain 2. Lupus 3. Immunosuppressed REC PipTazo # 3, continue. Holding Belimumab and mycophenolate. Due to pain and #3, I would proceed in AM with repeat CT. Some type of drainage procedure should be carried out unless substantially improved. Subjective Date/time seen: 12/27/19 15:03 Interval history: marked increase in pain with movement, relieved partially with HC APAP. appetite remains fair. Pain otherwise unchanged in location or character Exam Narrative: Exam Narrative: t max 37.6 since last visit, flat temperature curve Const: General: comfortable and no acute distress Eyes: General: appearance normal, both eyes and all related structures Sclera: normal sclerae Resp: Effort & Inspection: normal respiratory effort Auscultation: clear to auscultation bilaterally Cardio: Rate: regular rate Rhythm: regular rhythm Heart sounds: no murmurs GI: GI Palp: Yes Soft to palpation, Yes Tenderness to palpation present (GI), Yes Guarding due to palpation present (GI) and No Hernia present Auscultation: abnormal bowel sounds Skin: General skin exam: no rashes or lesions noted Objective Data Vital Signs Vital Signs: Vital Signs - 24 hr 12/26/19 22:00 12/27/19 06:00 12/27/19 09:21 Temperature 37.2 C 37.2 C 37.6 C H Pulse Rate 99 91 Respiratory Rate 20 20 Blood Pressure 107/69 106/68 Pulse Oximetry 100 96 12/27/19 13:30 12/27/19 13:42 12/27/19 14:00 Temperature 37.6 C H 37.6 C H 37.0 C Pulse Rate 98 Respiratory Rate 16 Blood Pressure 107/61 Pulse Oximetry 100 Intake/Output Intake/Output: Intake & Output 12/24/19 12/25/19 12/26/19 12/27/19 23:59 23:59 23:59 23:59 Intake Total 1100 3900 2020 1060 Output Total 2400 4300 2000 Balance 1100 1500 -3900 -940 Meds/Results Medications: Active Medications Generic Name Dose Route Start Last Admin Trade Name Freq PRN Reason Stop Dose Admin Acetaminophen 650 mg 12/26/19 03:13 12/27/19 13:42 Tylenol Tablet PO 650 mg Q4H PRN Administration Mild Pain (1-3) or Fever Hydrocodone Bitart/Acetaminophen 1 tab 12/26/19 11:02 12/27/19 09:14 [place] 5-325 Mg PO 1 tab Q4H PRN Administration Pain Rated 4-6 Alprazolam 0.5 mg 12/25/19 04:46 Xanax PO TID PRN Anxiety Enoxaparin Sodium 60 mg 12/26/19 06:00 12/27/19 05:59 Lovenox SUB-Q 60 mg Q12H RADHA Administration Fluoxetine HCl 80 mg 12/26/19 09:00 12/27/19 09:19 Prozac PO 80 mg QAM RADHA Administration Gabapentin 800 mg 12/25/19 09:00 12/27/19 13:42 Neurontin PO 800 mg TID RADHA Administration Hydroxychloroquine Sulfate 200 mg 12/25/19 08:00 12/27/19 09:19 Plaquenil PO 200 mg BIDWM RADHA Administration Piperacillin/Tazobactam/Dextrose 3.375 gm in 50 mls @ 100 mls/hr 12/25/19 01:00 12/27/19 13:41 Zosyn 3.375 Gm/D5w 50ml Pm IVPB 100 mls/hr Q6HR RADHA Administration Loratadine 10 mg 12/26/19 07:51 12/26/19 10:19 Claritin PO 10 mg DAILY PRN Administration runny nose Morphine Sulfate 2 mg 12/26/19 11:02 12/27/19 13:42 Morphine Sulfate Inj IV PUSH 2 mg Q4H PRN Administration Pain Rated 7-10 Non-Formulary Medication 200 mg 12/25/19 09:00 Belimumab [Benlysta] SUB-Q 01/24/20 09:01 WEEKLY [facility] Pantoprazole Sodium 40 mg 12/27/19 10:45 12/27/19 11:18 Protonix Iv IV PUSH 40 mg Q12HR RADHA Administration Polyethylene Glycol 17 gm 12/26/19 11:04 12/27/19 11:20 Miralax PO 17 gm QAM PRN Administration Constipation Radiology Results: ITS Impressions Abdomen/Pelvis CT 12/24/19 18:37 IMPRESSION: 1. Left liver lobe indeterminate lesion, could be focal nodular hyperplasia but follow-up liver MRI examination with contrast is recommended. 2. Nonspecific mild per
[2019-12-27] MEDS: LORATADINE 10 MG TABLET PO (18:46)
[2019-12-28] MEDS: ENOXAPARIN 60 MG/0.6 ML SYRINGE SUB-Q ×2 (05:09→18:14)
[2019-12-28] MEDS: MORPHINE SULFATE 2 MG/ML INJ IV PUSH ×2 (05:09→11:32)
[2019-12-28 05:26] LABS: Basophils Percent Auto 0.7 % (0.2-1.2); Eosinophils Absolute Auto 0.1 K/mm3 (0-0.3); Eosinophils Percent Auto 2.5 % (0-4.4); Hematocrit 32.8 % (37.0-47.0); Hemoglobin 10.8 g/dL (12.0-15.0); Immature Granulocyte Absolute 0.03 K/mm3 (0.00-0.031); Immature Granulocyte Percent A 0.7 % (0-0.5); Lymphocytes Percent Auto 9.9 % (18.3-44.2); Mean Corpuscular HGB Conc 32.9 g/dl (32-36); Mean Corpuscular Hemoglobin 30.4 pg (26-34); Mean Corpuscular Volume 92.4 fl (80-100); Mean Platelet Volume 10.2 fl (7.4-10.4); Monocytes Absolute Auto 0.3 K/mm3 (0.1-0.6); Monocytes Percent Auto 7.7 % (2.6-8.5); Neutrophils Absolute Auto 3.2 K/mm3 (1.3-6.7); Neutrophils Percent Auto 78.5 % (45.5-73.1); Platelet Count Result 208 k/mm3 (150-375); Red Blood Count 3.55 M/mm3 (4.2-5.4); Red Cell Distribution Width 11.9 % (11.5-14.5)
[2019-12-28 05:38] LABS: Alanine Aminotransferase 42 U/L (4-35); Albumin Level 3.3 g/dL (3.5-5.1); Alkaline Phosphatase 74 U/L (38-126); Aspartate Amino Transferase 41 U/L (14-36); Bilirubin,Total 0.4 mg/dL (0.2-1.3); Blood Urea Nitrogen 3 mg/dL (7-17); Calcium 8.3 mg/dL (8.4-10.2); Carbon Dioxide 28 mmol/L (22-30); Chloride 102 mmol/L (98-107); Estimated CRCL calculation 93 ml/min; Estimated Glomerular Filt Rate > 60; Glucose 99 mg/dL (65-105); Magnesium 1.9 mg/dL (1.6-2.3); Potassium 3.8 mmol/L (3.4-5.0); Sodium 134 mmol/L (137-145)
[2019-12-28 06:00] VITALS: PULSE 85; RESP 21; TEMP 37.5; O2SAT 100
[2019-12-28 07:49] VITALS: BP 103/68; PULSE 85; RESP 21; TEMP 37.5; O2SAT 100
[2019-12-28] MEDS: FLUOXETINE HCL 20 MG CAP 80 MG PO (08:45)
[2019-12-28] MEDS: GABAPENTIN 400 MG CAPSULE 800 MG PO ×3 (08:45→18:14)
[2019-12-28] MEDS: HYDROXYCHLOROQUINE SULFATE 200 MG TABLET PO ×2 (08:46→18:14)
[2019-12-28] MEDS: PANTOPRAZOLE SODIUM IV 40 MG VIAL IV PUSH ×2 (08:46→20:44)
--- NOTE | 2019-12-28 13:48 | PM.IMPN ---
Progress Note: A&P Assessment and Plan (1) Abdominal pain: Code(s): R10.9 - Unspecified abdominal pain Status: Acute Assessment and Plan: Likely from abscess/thrombosis of right hepatic artery; other etiologies such cholecystitis, pancreatitis less likely given imaging results. The patient has been having increased pain over the previous few days prior to presentation; still having mild epigastric pain when pain medications wear off.CT abd shows 2.2 cm cystic mass of right hepatic lobe that is stable from 12/23. Spoke with ID who recommended consulting Surgery since abscess likely to small to drain from IR point of view. Will continue pain control with PO and IV pain medications PRN Monitor Trend leukocytosis. Consult to General Surgery for further recommendations which are greatly appreciated (2) Liver abscess: Code(s): K75.0 - Abscess of liver Status: Acute Assessment and Plan: MRI abdomen pelvis showed 2.1 cm cystic mass in right hepatic lobe, likely an infarct or abscess. Necrotic neoplasm cannot be excluded. CT today shows stable 2.2 cm cystic mass and stable periportal low attenuation in medial segment of right hepatic lobe, likely edema or infarct. Continue on IV Zosyn for now Infectious Disease following and greatly appreciate input Continue monitor her vital signs and fevers. Further input from ID and General Surgery is appreciated. (3) Thrombosis of right hepatic artery: Code(s): I74.8 - Embolism and thrombosis of other arteries Status: Acute Assessment and Plan: MRI abdomen pelvis showed thrombus in right hepatic artery. Could be secondary to vasculitis from lupus Continue SC Lovenox by weight Q 12 hr. Will continue monitoring her symptoms. Home contraceptive held (4) Acute febrile illness: Code(s): R50.9 - Fever, unspecified Status: Acute Assessment and Plan: After receiving the MRI results which shows the patient likely has a liver abscess which could be the underlying cause of her fevers. BC negative to date. Afebrile toda. VSS ID consulted and appreciate input Continue supportive care with IV antibiotics, antipyretics, antiemetics as needed overnight. (5) SLE (systemic lupus erythematosus): Qualifiers: Systemic lupus erythematosus organ involvement: unspecified Systemic lupus erythematosus type: unspecified Qualified Code(s): M32.9 - Systemic lupus erythematosus, unspecified Code(s): M32.9 - Systemic lupus erythematosus, unspecified Status: Chronic Assessment and Plan: Will hold two of the patients home medications secondary to acute illness- Belimumab and mycophenolate Will continue Hydroxychloroquine. 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 Subjective Date/time seen: 12/28/19 13:48 Interval history: Patient is a 34 yo F with history of SLE and Sjogren syndrome who is here for evaluation of right lobe hepatic abscess and treatment of hepatic artery occlusion; abscess possibly due to infarct from occlusion. Patient is doing okay today. Her pain is tolerable with pain medication. Abdominal pain is mainly epigastric with some radiation to RUQ. Her appetite has been diminished recently, although tolerating PO okay. She has been having dark urine, but no dysuria, hematuria. She has no other complaints. Denies f/c/ns today, headaches, dizziness, lightheadedness, changes in v/h, cp/palpitations, sob/cough, n/v/d/c, dysphagia, melena, brbpr, calf pain/swelling. Review of Systems Review of Systems: All systems reviewed &
[2019-12-28 14:00] VITALS: BP 108/67; PULSE 90; RESP 16; TEMP 36.7; O2SAT 99
--- NOTE | 2019-12-28 16:50 | PM.CNGS ---
Assessment and Plan Assessment and plan (1) Thrombosis of right hepatic artery: Code(s): I74.8 - Embolism and thrombosis of other arteries Status: Acute Assessment and Plan: Multiple imaging studies performed since admission and all were reviewed and discussed with the patient. Dr. Ogden has also personally reviewed these independently and with the Radiologist. She appears to have a right hepatic artery thrombus that has caused a hepatic infarct in the right lobe. She was running fevers but has now been afebrile for the past 2 days. Her white blood cell count remains slightly neutropenic, likely from the combination of her lupus and chronic immunosuppressant use. After discussion with Dr. Ogden, it is felt that the patient's symptoms are all due to the right hepatic artery thrombus and infarct, but there is no significant abscess noted on the imaging studies. The abdominal CT performed today shows slight improvement in comparison to the initial CT scan with only about 1 cc of possible fluid collection in the area that is noted in the right hepatic lobe. This would not be amenable to drainage and does not require any surgical intervention at this time. Her persistent abdominal pain is also felt to be related to the thrombus with infarct rather than a persistent abscess. This being said, in light of her fevers with immunosuppression, we would recommend continuing the IV antibiotics per ID for at least another week. She is also on full-dose Lovenox currently and will need to complete anticoagulation treatment for the thrombus. We will continue to clinically follow the patient with serial abdominal exams and labs, and may adjust the plan as needed depending on how the patient continues to progress. Thank you for allowing me to evaluate the patient in consultation and we will continue to follow along with you. (2) Lesion of liver: Code(s): K76.9 - Liver disease, unspecified Status: Acute Assessment and Plan: See plan above. (3) Long-term use of immunosuppressant medication: Code(s): Z79.899 - Other senior living (current) drug therapy Status: Acute Assessment and Plan: Currently her immunosuppressants are on hold. (4) Acute febrile illness: Code(s): R50.9 - Fever, unspecified Status: Acute Assessment and Plan: Resolving. See plan above. (5) SLE (systemic lupus erythematosus): Qualifiers: Systemic lupus erythematosus type: unspecified Systemic lupus erythematosus organ involvement: unspecified Qualified Code(s): M32.9 - Systemic lupus erythematosus, unspecified Code(s): M32.9 - Systemic lupus erythematosus, unspecified Status: Chronic (6) Sicca syndrome: Code(s): M35.00 - Sicca syndrome, unspecified Status: Chronic Additional Plan Discussed the patient's case and plan of care with Dr. Ogden. History of Present Illness Consult details Consult date: 12/28/19 Reason for consult: other (Right hepatic artery thrombus with suspicion for right hepatic lobe infarct and suspected abscess) Requesting physician: Adalberto Brand PA-C Narrative: This is a 34-year-old female on chronic immunosuppressant medication for systemic lupus erythematosus, who presented to the emergency department on 12/24/2019. She had complaints of fever, epigastric and right upper quadrant abdominal pain, and body aches since 12/20/2019. She also reports associated nausea but no vomiting or diarrhea. The patient reports she would feel well after taking [id number] medication for her fever, but would begin feeling poorly again once the fever would come back. She was also taking [id number] antacids without relief. She decided to present to her primary care physician's office on 12/24/2019 and had a reported fever of 103.9? F. Her PCP then sent her to the emergency department for further evaluation. CT scan of abdomen and pelvis suggested a lesion of the liver that was
--- NOTE | 2019-12-28 16:56 | WPDINFPN2 ---
Progress Note: A&P Assessment and Plan (1) Liver abscess: Code(s): K75.0 - Abscess of liver Status: Acute Assessment and Plan: 1. Liver abscess, due to infarct. Stable size. BCs remain ngsf 2. Lupus 3. Immunosuppressed REC PipTazo # 4, continue. Holding Belimumab and mycophenolate. Due to marked immunosuppression, I think surgical opinion would be helpful re pros and cons of drainage procedure, in process and appreciated. Subjective Date/time seen: 12/28/19 16:56 Interval history: pain is reportedly better Exam Narrative: Exam Narrative: afebrile Const: General: comfortable and no acute distress Objective Data Vital Signs Vital Signs: Vital Signs - 24 hr 12/27/19 18:45 12/27/19 19:45 12/27/19 22:00 Temperature 37.6 C 37.1 C 36.6 C Pulse Rate 92 Respiratory Rate 21 H Blood Pressure 100/55 L Pulse Oximetry 100 12/28/19 06:00 12/28/19 07:49 12/28/19 14:00 Temperature 37.5 C 37.5 C 36.7 C Pulse Rate 85 85 90 Respiratory Rate 21 H 21 H 16 Blood Pressure 103/68 108/67 Pulse Oximetry 100 100 99 Intake/Output Intake/Output: Intake & Output 12/25/19 12/26/19 12/27/19 12/28/19 23:59 23:59 23:59 23:59 Intake Total 3900 2020 2540 1180 Output Total 2400 4300 4200 800 Balance 1500 -2280 -1660 380 Meds/Results Medications: Active Medications Generic Name Dose Route Start Last Admin Trade Name Freq PRN Reason Stop Dose Admin Acetaminophen 650 mg 12/26/19 03:13 12/27/19 18:45 Tylenol Tablet PO 650 mg Q4H PRN Administration Mild Pain (1-3) or Fever Hydrocodone Bitart/Acetaminophen 1 tab 12/26/19 11:02 12/27/19 20:37 [place] 5-325 Mg PO 1 tab Q4H PRN Administration Pain Rated 4-6 Alprazolam 0.5 mg 12/25/19 04:46 Xanax PO TID PRN Anxiety Enoxaparin Sodium 60 mg 12/26/19 06:00 12/28/19 05:09 Lovenox SUB-Q 60 mg Q12H RADHA Administration Fluoxetine HCl 80 mg 12/26/19 09:00 12/28/19 08:45 Prozac PO 80 mg QAM RADHA Administration Gabapentin 800 mg 12/25/19 09:00 12/28/19 12:44 Neurontin PO 800 mg TID RADHA Administration Hydroxychloroquine Sulfate 200 mg 12/25/19 08:00 12/28/19 08:46 Plaquenil PO 200 mg BIDWM RADHA Administration Piperacillin/Tazobactam/Dextrose 3.375 gm in 50 mls @ 100 mls/hr 12/25/19 01:00 12/28/19 12:42 Zosyn 3.375 Gm/D5w 50ml Pm IVPB 100 mls/hr Q6HR RADHA Administration Loratadine 10 mg 12/26/19 07:51 12/27/19 18:46 Claritin PO 10 mg DAILY PRN Administration runny nose Morphine Sulfate 2 mg 12/26/19 11:02 12/28/19 11:32 Morphine Sulfate Inj IV PUSH 2 mg Q4H PRN Administration Pain Rated 7-10 Non-Formulary Medication 200 mg 12/25/19 09:00 12/28/19 10:12 Belimumab [Benlysta] SUB-Q 01/24/20 09:01 Not Given WEEKLY [facility] Pantoprazole Sodium 40 mg 12/27/19 10:45 12/28/19 08:46 Protonix Iv IV PUSH 40 mg Q12HR RADHA Administration Polyethylene Glycol 17 gm 12/26/19 11:04 12/27/19 11:20 Miralax PO 17 gm QAM PRN Administration Constipation Radiology Results: ITS Impressions Abdomen/Pelvis CT 12/24/19 18:37 IMPRESSION: 1. Left liver lobe indeterminate lesion, could be focal nodular hyperplasia but follow-up liver MRI examination with contrast is recommended. 2. Nonspecific mild periportal edema. Chest X-Ray 12/24/19 19:06 IMPRESSION: Normal chest x-ray exam. Abdomen MRI 12/25/19 09:59 IMPRESSION: 1. Thrombus in right hepatic artery. 2. 2.1 cm cystic mass in right hepatic lobe, likely an infarct or abscess. Necrotic neoplasm cannot be excluded. Consider abdomen MRI without and with contrast in 3 months. Venous Doppler Study 12/26/19 12:21 IMPRESSION: 1. No deep venous thrombosis. Abdomen CT 12/28/19 08:30 IMPRESSION: 1. 2.2 cm cystic mass in right hepatic lobe, stable from 12/24/19, likely an infarct or abscess. Necrotic neoplasm cannot be excluded. C
--- NOTE | 2019-12-28 17:37 | PM.PNGS ---
Progress Note: A&P Assessment and Plan (1) Thrombosis of right hepatic artery: Code(s): I74.8 - Embolism and thrombosis of other arteries Status: Acute Assessment and Plan: recommend continued anticoagulant therapy. May wish to evaluate for a prothrombotic condition as even though the patient has lupus, this is not a typical cause for hepatic artery thrombosis. It is not clear to me why she developed right hepatic artery thrombosis. (2) Infarction of right lobe of liver: Code(s): K76.3 - Infarction of liver Status: Acute Assessment and Plan: I think this is the lesions seen on CT scan rather than hepatic abscess. I would continue antibiotic therapy for at least a total of 7 days. Her fevers have subsided and are now minimal. I will follow along with you. If this changes, we will adjust our plan but at this point I expect her to continue to improve with anticoagulant therapy. I would not recommend image guided aspiration. (3) SLE (systemic lupus erythematosus): Qualifiers: Systemic lupus erythematosus type: unspecified Systemic lupus erythematosus organ involvement: unspecified Qualified Code(s): M32.9 - Systemic lupus erythematosus, unspecified Code(s): M32.9 - Systemic lupus erythematosus, unspecified Status: Chronic (4) Long-term use of immunosuppressant medication: Code(s): Z79.899 - Other meterman (current) drug therapy Status: Chronic Subjective Subjective Date/Time Seen: 12/28/19 17:37 Patient presented with right upper quadrant and epigastric pain, fever, and neutropenia. She was noted by CT and MRI to have thrombosis of right hepatic artery. She is on a therapeutic dose of Lovenox as well as Zosyn. She was febrile the 1st 3 days of admission but her temperature has tapered down to where she is nearly afebrile at this time. Her right upper quadrant pain is not gone but is much less severe than it has been. CT scans were reviewed independently and with . They show an intrahepatic lesion in the right lobe that was larger on the initial imaging than it is on today's CT. Patient is seen now in consultation regarding this intrahepatic abnormality and the possibility of hepatic abscess as well as need for drainage. Review of Systems Review of Systems: All systems reviewed & are unremarkable except as noted in HPI and below ( HPI) Exam GI: Inspection: normal to inspection and non-distended GI Palp: Yes Soft to palpation, Yes Tenderness to palpation present (GI) ( right upper quadrant), No Guarding due to palpation present (GI) and No Rebound tenderness present Auscultation: normal bowel sounds Objective Data Vital Signs Vital Signs: Vital Signs - 24 hr 12/27/19 18:45 12/27/19 19:45 12/27/19 22:00 Temperature 37.6 C 37.1 C 36.6 C Pulse Rate 92 Respiratory Rate 21 H Blood Pressure 100/55 L Pulse Oximetry 100 12/28/19 06:00 12/28/19 07:49 12/28/19 14:00 Temperature 37.5 C 37.5 C 36.7 C Pulse Rate 85 85 90 Respiratory Rate 21 H 21 H 16 Blood Pressure 103/68 108/67 Pulse Oximetry 100 100 99 Intake/Output Intake/Output: Intake & Output 12/25/19 12/26/19 12/27/19 12/28/19 23:59 23:59 23:59 23:59 Intake Total 3900 2020 2540 1180 Output Total 2400 4300 4200 800 Balance 1500 -2280 -1660 380 Meds/Results Medications: Active Medications Generic Name Dose Route Start Last Admin Trade Name Freq PRN Reason Stop Dose Admin Acetaminophen 650 mg 12/26/19 03:13 12/27/19 18:45 Tylenol Tablet PO 650 mg Q4H PRN Administration Mild Pain (1-3) or Fever Hydrocodone Bitart/Acetaminophen 1 tab 12/26/19 11:02 12/27/19 20:37 [place] 5-325 Mg PO 1 tab Q4H PRN Administration Pain Rated 4-6 Alprazolam 0.5 mg 12/25/19 04:46 Xanax PO TID PRN Anxiety Enoxaparin Sodium 60 mg 12/26/19 06:00 12/28/19 05:09 Lovenox SUB-Q 60 mg Q12H RADHA Administration Fluoxeti
[2019-12-28] MEDS: LORATADINE 10 MG TABLET PO (21:24)
[2019-12-28 21:29] VITALS: BP 102/61; PULSE 78; RESP 16; TEMP 36.1; O2SAT 97
[2019-12-29 05:36] LABS: Basophils Percent Auto 1.5 % (0.2-1.2); Eosinophils Absolute Auto 0.1 K/mm3 (0-0.3); Eosinophils Percent Auto 5.6 % (0-4.4); Hematocrit 34.7 % (37.0-47.0); Hemoglobin 11.1 g/dL (12.0-15.0); Immature Granulocyte Absolute 0.01 K/mm3 (0.00-0.031); Immature Granulocyte Percent A 0.5 % (0-0.5); Lymphocytes Absolute Auto 0.56 K/mm3 (0.9-3.2); Lymphocytes Percent Auto 28.7 % (18.3-44.2); Mean Corpuscular Volume 93.8 fl (80-100); Mean Platelet Volume 9.7 fl (7.4-10.4); Monocytes Absolute Auto 0.3 K/mm3 (0.1-0.6); Monocytes Percent Auto 14.9 % (2.6-8.5); Neutrophils Percent Auto 48.8 % (45.5-73.1); Platelet Count Result 236 k/mm3 (150-375); Red Cell Distribution Width 11.8 % (11.5-14.5)
[2019-12-29] MEDS: ENOXAPARIN 60 MG/0.6 ML SYRINGE SUB-Q ×2 (05:46→17:35)
[2019-12-29] MEDS: MORPHINE SULFATE 2 MG/ML INJ IV PUSH (05:47)
[2019-12-29 05:53] LABS: Alanine Aminotransferase 44 U/L (4-35); Albumin Level 3.3 g/dL (3.5-5.1); Alkaline Phosphatase 73 U/L (38-126); Aspartate Amino Transferase 40 U/L (14-36); Bilirubin,Total 0.3 mg/dL (0.2-1.3); Blood Urea Nitrogen 4 mg/dL (7-17); Calcium 8.7 mg/dL (8.4-10.2); Carbon Dioxide 30 mmol/L (22-30); Chloride 104 mmol/L (98-107); Estimated CRCL calculation 93 ml/min; Estimated Glomerular Filt Rate > 60; Glucose 103 mg/dL (65-105); Potassium 4.5 mmol/L (3.4-5.0); Sodium 136 mmol/L (137-145)
[2019-12-29 06:00] VITALS: BP 107/74; PULSE 84; RESP 14; TEMP 36.2; O2SAT 100
[2019-12-29 08:46] LABS: Fibrinogen 416 mg/dl (215-510)
[2019-12-29] MEDS: FLUOXETINE HCL 20 MG CAP 80 MG PO (09:33)
[2019-12-29] MEDS: HYDROXYCHLOROQUINE SULFATE 200 MG TABLET PO ×2 (09:33→17:35)
[2019-12-29] MEDS: GABAPENTIN 400 MG CAPSULE 800 MG PO ×3 (09:33→17:35)
[2019-12-29] MEDS: polyethylene glycoL 3350 17 GM POWD.PACK PO (09:36)
--- NOTE | 2019-12-29 10:34 | PM.IMPN ---
Progress Note: A&P Assessment and Plan (1) Liver abscess: Code(s): K75.0 - Abscess of liver Status: Acute Assessment and Plan: On arrival, MRI abdomen pelvis showed 2.1 cm cystic mass in right hepatic lobe, likely an infarct or abscess. Necrotic neoplasm cannot be excluded. CT today shows stable 2.2 cm cystic mass and stable periportal low attenuation in medial segment of right hepatic lobe, likely edema or infarct. Infectious Disease evaluated the patient and recommend continuing IV Zosyn and also recommended a surgical consultation for possible IR drain. Surgery evaluated the patient and her pain and symptoms are most likely due to her infarction of the right hepatic lobe. He did not recommended any drainage at this time. Continue on IV Zosyn for now Infectious Disease and surgery following and greatly appreciate input Continue monitor her vital signs and fevers. (2) Abdominal pain: Code(s): R10.9 - Unspecified abdominal pain Status: Acute Assessment and Plan: Likely from abscess/thrombosis of right hepatic artery; other etiologies such cholecystitis, pancreatitis less likely given imaging results. The patient has been having increased pain over the previous few days prior to presentation; still having mild epigastric pain when pain medications wear off. Will continue pain control with PO and IV pain medications PRN Monitor Trend leukocytosis. Consult to General Surgery for further recommendations which are greatly appreciated (3) Thrombosis of right hepatic artery: Code(s): I74.8 - Embolism and thrombosis of other arteries Status: Acute Assessment and Plan: MRI abdomen pelvis showed thrombus in right hepatic artery. Could be secondary to vasculitis from lupus Continue SC Lovenox by weight Q 12 hr. The patient's initial coag panel on arrival was completely normal as well as her fibrinogen lab today was normal. No further workup needed at this time. Will continue treating with anticoagulation and have her follow-up with her primary care provider for further evaluation (4) Acute febrile illness: Code(s): R50.9 - Fever, unspecified Status: Acute Assessment and Plan: After receiving the MRI results which shows the patient likely has a liver abscess which could be the underlying cause of her fevers. BC negative to date. The patient has been afebrile the last few days and is overall feeling better. ID consulted and appreciate input Continue supportive care with IV antibiotics, antipyretics, antiemetics as needed overnight. (5) SLE (systemic lupus erythematosus): Qualifiers: Systemic lupus erythematosus organ involvement: unspecified Systemic lupus erythematosus type: unspecified Qualified Code(s): M32.9 - Systemic lupus erythematosus, unspecified Code(s): M32.9 - Systemic lupus erythematosus, unspecified Status: Chronic Assessment and Plan: Will hold two of the patients home medications secondary to acute illness- Belimumab and mycophenolate Will continue Hydroxychloroquine. 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 Time Spent With Patient Time with patient: 25 - 35 minutes Subjective Date/time seen: 12/29/19 10:34 Interval history: Date of Service 12/29/2019: The patient states her abdominal discomfort has improved. Currently the patient has a constant 2/10 pain to her epigastric/right upper quadrant and then went in to 10 suffice it goes up to about a 6 or 7. She had pain earlier this morning but had not had any since then and was
[2019-12-29 14:00] VITALS: BP 105/62; PULSE 89; RESP 16; TEMP 36.3; O2SAT 97
--- NOTE | 2019-12-29 14:33 | PM.PNGS ---
Progress Note: A&P Assessment and Plan (1) Thrombosis of right hepatic artery: Code(s): I74.8 - Embolism and thrombosis of other arteries Status: Acute Assessment and Plan: etiology of this is not clear to me. I think this is the reason for her present illness and, as a mention yesterday, I do not feel there is any significant liver infection despite her fevers. Would recommend hematologic evaluation for pro coagulant condition. It may be from her lupus but I think this should be looked at. I am not sure how long she should be on anticoagulation but it would seem prudent to at least continue this for 6 months. Agree with antibiotics as not entirely sure there is no liver infection but 7-10 days total would seem to be reasonable to me. Could transit to oral antibiotics if okay with Infectious Disease. (2) Infarction of right lobe of liver: Code(s): K76.3 - Infarction of liver Status: Acute Assessment and Plan: CT appearance on the 2 CT scans seem consistent more with infarction than abscess as I discussed. Liver infarction can cause high fevers. See notes above. (3) Long-term use of immunosuppressant medication: Code(s): Z79.899 - Other retirement (current) drug therapy Status: Chronic (4) SLE (systemic lupus erythematosus): Qualifiers: Systemic lupus erythematosus type: unspecified Systemic lupus erythematosus organ involvement: unspecified Qualified Code(s): M32.9 - Systemic lupus erythematosus, unspecified Code(s): M32.9 - Systemic lupus erythematosus, unspecified Status: Chronic Subjective Subjective Date/Time Seen: 12/29/19 14:33 Still taking pain meds but overall feels better. Upper abdominal pain mostly gone. No fevers for over 2 days. Review of Systems Review of Systems: All systems reviewed & are unremarkable except as noted in HPI and below ( HPI) Exam GI: Inspection: non-distended GI Palp: Yes Tenderness to palpation present (GI) ( slightly tender right upper quadrant), No Guarding due to palpation present (GI), Yes No hepatosplenomegaly present and No Rebound tenderness present Auscultation: normal bowel sounds Objective Data Vital Signs Vital Signs: Vital Signs - 24 hr 12/28/19 21:29 12/29/19 06:00 Temperature 36.1 C L 36.2 C L Pulse Rate 78 84 Respiratory Rate 16 14 Blood Pressure 102/61 107/74 Pulse Oximetry 97 100 Intake/Output Intake/Output: Intake & Output 12/26/19 12/27/19 12/28/19 12/29/19 23:59 23:59 23:59 23:59 Intake Total 2019 2540 2360 350 Output Total 4300 4200 2300 1250 Balance -2280 -1660 60 -900 Meds/Results Medications: Active Medications Generic Name Dose Route Start Last Admin Trade Name Freq PRN Reason Stop Dose Admin Acetaminophen 650 mg 12/26/19 03:13 12/27/19 18:45 Tylenol Tablet PO 650 mg Q4H PRN Administration Mild Pain (1-3) or Fever Hydrocodone Bitart/Acetaminophen 1 tab 12/26/19 11:02 12/29/19 12:34 [place] 5-325 Mg PO 1 tab Q4H PRN Administration Pain Rated 4-6 Alprazolam 0.5 mg 12/25/19 04:46 Xanax PO TID PRN Anxiety Enoxaparin Sodium 60 mg 12/26/19 06:00 12/29/19 05:46 Lovenox SUB-Q 60 mg Q12H RADHA Administration Fluoxetine HCl 80 mg 12/26/19 09:00 12/29/19 09:33 Prozac PO 80 mg QAM RADHA Administration Gabapentin 800 mg 12/25/19 09:00 12/29/19 12:34 Neurontin PO 800 mg TID RADHA Administration Hydroxychloroquine Sulfate 200 mg 12/25/19 08:00 12/29/19 09:33 Plaquenil PO 200 mg BIDWM RADHA Administration Piperacillin/Tazobactam/Dextrose 3.375 gm in 50 mls @ 100 mls/hr 12/25/19 01:00 12/29/19 12:32 Zosyn 3.375 Gm/D5w 50ml Pm IVPB 100 mls/hr Q6HR RADHA Administration Loratadine 10 mg 12/26/19 07:51 12/28/19 21:24 Claritin PO 10 mg DAILY PRN Administration runny nose Morphine Sulfate 2 mg 12/26/19 11:02 12/29/19 05:47 Morphine Sulfate Inj IV PUSH
[2019-12-29] MEDS: PANTOPRAZOLE SODIUM IV 40 MG VIAL IV PUSH ×2 (15:07→21:35)
[2019-12-29 21:41] VITALS: BP 111/74; PULSE 82; RESP 16; TEMP 36.3; O2SAT 100
--- NOTE | 2019-12-30 03:29 | PC.NURSE ---
Daylight Savings Time For Daylight Savings Time Ending in the Fall - Clocks are moved back. For Daylight Savings Time Beginning in the Spring - Clocks are moved ahead. For [facility], the time of change occurs at 0200 hrs. Time is taken from the line server. This entry on the patient's chart recognizes the change in time reflected during documentation. Example: 2 entries for vital signs may be charted for 0200 hrs.
[2019-12-30 05:49] LABS: Eosinophils Absolute Auto 0.1 K/mm3 (0-0.3); Eosinophils Percent Auto 5.9 % (0-4.4); Hematocrit 36.9 % (37.0-47.0); Hemoglobin 11.8 g/dL (12.0-15.0); Immature Granulocyte Absolute 0.01 K/mm3 (0.00-0.031); Immature Granulocyte Percent A 0.5 % (0-0.5); Lymphocytes Absolute Auto 0.76 K/mm3 (0.9-3.2); Lymphocytes Percent Auto 37.4 % (18.3-44.2); Mean Corpuscular Hemoglobin 30.2 pg (26-34); Mean Corpuscular Volume 94.4 fl (80-100); Monocytes Absolute Auto 0.3 K/mm3 (0.1-0.6); Monocytes Percent Auto 14.3 % (2.6-8.5); Neutrophils Absolute Auto 0.8 K/mm3 (1.3-6.7); Neutrophils Percent Auto 39.9 % (45.5-73.1); Platelet Count Result 278 k/mm3 (150-375); Red Blood Count 3.91 M/mm3 (4.2-5.4); Red Cell Distribution Width 11.9 % (11.5-14.5)
[2019-12-30 06:00] VITALS: BP 114/71; PULSE 77; RESP 16; TEMP 36.2; O2SAT 100
[2019-12-30 06:07] LABS: Alanine Aminotransferase 50 U/L (4-35); Albumin Level 3.5 g/dL (3.5-5.1); Alkaline Phosphatase 76 U/L (38-126); Aspartate Amino Transferase 52 U/L (14-36); Bilirubin,Total 0.2 mg/dL (0.2-1.3); Blood Urea Nitrogen 5 mg/dL (7-17); Calcium 8.7 mg/dL (8.4-10.2); Carbon Dioxide 27 mmol/L (22-30); Chloride 102 mmol/L (98-107); Estimated CRCL calculation 93 ml/min; Estimated Glomerular Filt Rate > 60; Glucose 91 mg/dL (65-105); Potassium 4.1 mmol/L (3.4-5.0); Sodium 136 mmol/L (137-145)
[2019-12-30] MEDS: ACETAMINOPHEN 325 MG TABLET 650 MG PO ×3 (06:29→18:25)
[2019-12-30] MEDS: ENOXAPARIN 60 MG/0.6 ML SYRINGE SUB-Q ×2 (06:30→18:23)
[2019-12-30] MEDS: HYDROXYCHLOROQUINE SULFATE 200 MG TABLET PO ×2 (10:05→18:23)
[2019-12-30] MEDS: PANTOPRAZOLE SODIUM IV 40 MG VIAL IV PUSH ×2 (10:06→21:18)
[2019-12-30] MEDS: FLUOXETINE HCL 20 MG CAP 80 MG PO (10:06)
[2019-12-30] MEDS: GABAPENTIN 400 MG CAPSULE 800 MG PO ×3 (10:06→18:22)
[2019-12-30] MEDS: LORATADINE 10 MG TABLET PO (10:08)
--- NOTE | 2019-12-30 13:23 | PM.PNGS ---
Progress Note: A&P Assessment and Plan (1) Thrombosis of right hepatic artery: Code(s): I74.8 - Embolism and thrombosis of other arteries Status: Acute Assessment and Plan: pain associated with ischemic event continues to improve. No fever now for 3 days. Patient can be discharged on anticoagulant therapy today or tomorrow from my perspective. Today is the 6th day of Zosyn therapy. Could continue whatever length of antibiotic therapy is felt to be needed with oral antibiotics. I can see her in the office in 2 weeks. She should see her doctor that manages lupus in 1-2 weeks after discharge. (2) Infarction of right lobe of liver: Code(s): K76.3 - Infarction of liver Status: Acute Assessment and Plan: Pain nearly resolved. Fever has been resolved. (3) Long-term use of immunosuppressant medication: Code(s): Z79.899 - Other fci (current) drug therapy Status: Chronic Assessment and Plan: Currently on hold. (4) SLE (systemic lupus erythematosus): Qualifiers: Systemic lupus erythematosus type: unspecified Systemic lupus erythematosus organ involvement: unspecified Qualified Code(s): M32.9 - Systemic lupus erythematosus, unspecified Code(s): M32.9 - Systemic lupus erythematosus, unspecified Status: Chronic Subjective Subjective Date/Time Seen: 12/30/19 13:23 Patient reports: feels better, pain is less and bowel movement Interval history: Continues to improve. No fever. Now taking only Tylenol for pain. Review of Systems Review of Systems: All systems reviewed & are unremarkable except as noted in HPI and below Constitutional: Constitutional: Denies headache(s) ENT: Denies headache(s) Cardiovascular: Cardiovascular: Denies chest pain and Denies dyspnea Respiratory: Respiratory: Denies cough and Denies dyspnea Gastrointestinal: Gastrointestinal: Reports as per HPI Neurologic: Denies confusion and Denies headache(s) Psychiatric: Psychiatric: Denies confusion Exam Const: General: comfortable and no acute distress; No confusion Orientation/consciousness: patient oriented x3 and No confusion GI: Inspection: normal to inspection GI Palp: Yes Soft to palpation, Yes Tenderness to palpation present (GI) ( Minimal right upper quadrant tenderness. Essentially nontender), No Guarding due to palpation present (GI) and No Rebound tenderness present Auscultation: normal bowel sounds Neuro: General: patient oriented x3, no focal motor deficits and No confusion Extrem: General: no calf tenderness and no edema Psych: Affect: normal affect Insight: Good insight present (Psych) Judgement: Good judgement present (Psych) Objective Data Vital Signs Vital Signs: Vital Signs - 24 hr 12/29/19 14:00 12/29/19 21:41 12/30/19 06:00 Temperature 36.3 C L 36.3 C L 36.2 C L Pulse Rate 89 82 77 Respiratory Rate 16 16 16 Blood Pressure 105/62 111/74 114/71 Pulse Oximetry 97 100 100 Intake/Output Intake/Output: Intake & Output 12/27/19 12/28/19 12/29/19 12/31/19 23:59 23:59 23:59 00:59 Intake Total 2540 2360 2470 540 Output Total 4200 2300 3250 1700 Balance -1660 60 -780 -1160 Meds/Results Medications: Active Medications Generic Name Dose Route Start Last Admin Trade Name Freq PRN Reason Stop Dose Admin Acetaminophen 650 mg 12/26/19 03:13 12/30/19 10:09 Tylenol Tablet PO 650 mg Q4H PRN Administration Mild Pain (1-3) or Fever Hydrocodone Bitart/Acetaminophen 1 tab 12/26/19 11:02 12/29/19 21:41 [place] 5-325 Mg PO 1 tab Q4H PRN Administration Pain Rated 4-6 Alprazolam 0.5 mg 12/25/19 04:46 Xanax PO TID PRN Anxiety Enoxaparin Sodium 60 mg 12/26/19 06:00 12/30/19 06:30 Lovenox SUB-Q 60 mg Q12H RADHA Administration Fluoxetine HCl 80 mg 12/26/19 09:00 12/30/19 10:06 Prozac PO 80 mg QAM RADHA Administration Gabapentin 800 mg 12/25/19 09:00 03
[2019-12-30 14:00] VITALS: BP 108/74; PULSE 84; RESP 16; TEMP 37.1; O2SAT 100
--- NOTE | 2019-12-30 14:59 | PM.IMPN ---
Progress Note: A&P Assessment and Plan (1) Liver abscess: Code(s): K75.0 - Abscess of liver Status: Acute Assessment and Plan: On arrival, MRI abdomen pelvis showed 2.1 cm cystic mass in right hepatic lobe, likely an infarct or abscess. Necrotic neoplasm cannot be excluded. CT today shows stable 2.2 cm cystic mass and stable periportal low attenuation in medial segment of right hepatic lobe, likely edema or infarct. Infectious Disease evaluated the patient and recommend continuing IV Zosyn and also recommended a surgical consultation for possible IR drain. Surgery evaluated the patient and her pain and symptoms are most likely due to her infarction of the right hepatic lobe. He did not recommended any drainage at this time. Continue on IV Zosyn for now Infectious Disease and surgery following and greatly appreciate input Continue monitor her vital signs and fevers. (2) Abdominal pain: Code(s): R10.9 - Unspecified abdominal pain Status: Acute Assessment and Plan: Likely from abscess/thrombosis of right hepatic artery; other etiologies such cholecystitis, pancreatitis less likely given imaging results. The patient has been having increased pain over the previous few days prior to presentation; still having mild epigastric pain when pain medications wear off. Will continue pain control with PO and IV pain medications PRN Monitor Trend leukocytosis. Consult to General Surgery for further recommendations which are greatly appreciated (3) Thrombosis of right hepatic artery: Code(s): I74.8 - Embolism and thrombosis of other arteries Status: Acute Assessment and Plan: MRI abdomen pelvis showed thrombus in right hepatic artery. Could be secondary to vasculitis from lupus Continue SC Lovenox by weight Q 12 hr. The patient's initial coag panel on arrival was completely normal as well as her fibrinogen lab today was normal. Dr. Ogden wanted a Paid Search Manager consult. Dr. Moncada evaluated the patient and is ordering labs and will follow up in his office in 1 week. Will continue treating with anticoagulation and have her follow-up with her primary care provider for further evaluation (4) Acute febrile illness: Code(s): R50.9 - Fever, unspecified Status: Acute Assessment and Plan: After receiving the MRI results which shows the patient likely has a liver abscess which could be the underlying cause of her fevers. BC negative to date. The patient has been afebrile the last few days and is overall feeling better. ID consulted and appreciate input Continue supportive care with IV antibiotics, antipyretics, antiemetics as needed overnight. (5) SLE (systemic lupus erythematosus): Qualifiers: Systemic lupus erythematosus organ involvement: unspecified Systemic lupus erythematosus type: unspecified Qualified Code(s): M32.9 - Systemic lupus erythematosus, unspecified Code(s): M32.9 - Systemic lupus erythematosus, unspecified Status: Chronic Assessment and Plan: Will hold two of the patients home medications secondary to acute illness- Belimumab and mycophenolate Will continue Hydroxychloroquine. 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 Time Spent With Patient Time with patient: 25 - 35 minutes Subjective Date/time seen: 12/30/19 14:59 Interval history: Date of Service 12/30/2019: The patient states her abdominal discomfort has improved and rated a 2/10 constantly. She is having less waxing and waning pain today and has not required any medications other than
--- NOTE | 2019-12-30 18:54 | CONS_ITS ---
DATE OF CONSULTATION: 12/30/2019 REASON FOR CONSULTATION: Hypercoagulable state. HISTORY OF PRESENTING ILLNESS: This is a pleasant 34-year-old female, who was diagnosed to have Sjogren syndrome in 2012, when she developed right salivary gland enlargement along with dryness in the eyes and mouth. Subsequently, she was diagnosed with lupus when she presented with a diffuse rash with numbness in the lower extremities, tiredness, and fatigue. She was started on CellCept and Plaquenil. She was started on Belimumab injection on a weekly basis at home about a year ago. Now, the patient came into the hospital with complaint of a right upper quadrant pain started a week ago and then development of body aches and fever about 4 days ago. She denies any diarrhea, nausea, and vomiting. She denies any cough. She had an MRI of the abdomen done on December 24, that showed thrombus in the right hepatic artery as well as 2.1 cm mass in the right hepatic lobe likely infarction or abscess. Surgical consultation was performed that did not recommend drainage of the abscess, but ID service started antibiotic treatment. The patient is already feeling better. 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 The patient denies any previous history of thromboembolic events. She also denies any family history of blood clot. She remains active. She was on oral control pills since age of 19, until her admission to the hospital. REVIEW OF SYSTEMS: A 12-point review of system was reviewed and as per HPI, otherwise negative. PAST MEDICAL HISTORY: History of Sjogren syndrome diagnosed in 2012, history of lupus diagnosed in 2014. PAST SURGICAL HISTORY: Rhinoplasty. FAMILY HISTORY: Negative for thromboembolic events. SOCIAL HISTORY: The patient denies any history of smoking. She drinks occasionally. The patient has no children. HOME MEDICATIONS: Reviewed. ALLERGIES: REVIEWED. PHYSICAL EXAMINATION: GENERAL: This patient is a well-developed, well-nourished female, in no apparent distress. Alert and oriented. VITAL SIGNS: Per nursing note. HEENT: Normocephalic, atraumatic. Clear oropharynx. LUNGS: Clear to auscultation bilaterally. CARDIOVASCULAR: Regular rate and rhythm. No murmurs. ABDOMEN: Slight tenderness in the right upper quadrant. Bowel sounds are positive. No hepatosplenomegaly. EXTREMITIES: No edema. NEURO EXAM: Grossly intact. LABORATORY DATA: WBC 2.0, hemoglobin 11.8, platelet 278,000, neutrophils 39%, lymphocytes 37%. Fibrinogen 416, creatinine 0.7, total bilirubin 0.2, AST 52, ALT 50. INR 0.9, PTT 29.6. ASSESSMENT AND PLAN: 1. Hypercoagulable state with recent diagnosis of hepatic artery thrombosis. The patient has a history of lupus diagnosed in 2014 as well as history of Sjogren syndrome diagnosed in 2012. She has been on immunosuppressive therapy with CellCept, Plaquenil, and most recently, she was started on Belimumab injections at home about a year ago. She is at risk for vasculitis and thrombosis given her history of lupus and also at risk for infarction and also at risk for liver abscess given her long-term immunosuppressive therapy. She has been rightly placed on a Lovenox injection. I will recommend oral anticoagulation therapy with Xarelto on discharge. I would not suggest any intervention for like a stent placement given the fact due to dual liver blood supply and anticoagulation should be sufficient. I will perform a hypercoagulable workup and will check her for Factor V Leiden mutation as well as prothrombin gene mutation. Complete hypercoagulable workup will be done once thrombosis resolved. She will be on long-term anticoagulation therapy. 2. Hepatic abscess. The patient has been seen by the Infectiou
[2019-12-30 21:34] VITALS: BP 118/73; PULSE 81; RESP 16; TEMP 36.2; O2SAT 98
[2019-12-31 05:23] LABS: Basophils Percent Auto 1.8 % (0.2-1.2); Eosinophils Absolute Auto 0.1 K/mm3 (0-0.3); Hematocrit 36.8 % (37.0-47.0); Hemoglobin 11.9 g/dL (12.0-15.0); Immature Granulocyte Absolute 0.01 K/mm3 (0.00-0.031); Immature Granulocyte Percent A 0.4 % (0-0.5); Lymphocytes Absolute Auto 0.83 K/mm3 (0.9-3.2); Lymphocytes Percent Auto 36.9 % (18.3-44.2); Mean Corpuscular HGB Conc 32.3 g/dl (32-36); Mean Corpuscular Hemoglobin 30.1 pg (26-34); Mean Corpuscular Volume 93.2 fl (80-100); Mean Platelet Volume 9.9 fl (7.4-10.4); Monocytes Absolute Auto 0.3 K/mm3 (0.1-0.6); Monocytes Percent Auto 11.1 % (2.6-8.5); Neutrophils Percent Auto 45.8 % (45.5-73.1); Platelet Count Result 305 k/mm3 (150-375); Red Blood Count 3.95 M/mm3 (4.2-5.4); Red Cell Distribution Width 11.7 % (11.5-14.5); White Blood Count 2.3 K/mm3 (4.5-10.0)
[2019-12-31 05:45] LABS: Blood Urea Nitrogen 6 mg/dL (7-17); Calcium 8.7 mg/dL (8.4-10.2); Carbon Dioxide 25 mmol/L (22-30); Chloride 103 mmol/L (98-107); Estimated CRCL calculation 93 ml/min; Estimated Glomerular Filt Rate > 60; Glucose 93 mg/dL (65-105); Potassium 4.1 mmol/L (3.4-5.0); Sodium 135 mmol/L (137-145)
[2019-12-31 06:00] VITALS: BP 117/71; PULSE 85; RESP 16; TEMP 36.2; O2SAT 97
[2019-12-31] MEDS: ENOXAPARIN 60 MG/0.6 ML SYRINGE SUB-Q ×2 (06:25→17:47)
[2019-12-31] MEDS: HYDROXYCHLOROQUINE SULFATE 200 MG TABLET PO ×2 (09:51→17:47)
[2019-12-31] MEDS: LORATADINE 10 MG TABLET PO (09:51)
[2019-12-31] MEDS: FLUOXETINE HCL 20 MG CAP 80 MG PO (09:51)
[2019-12-31] MEDS: GABAPENTIN 400 MG CAPSULE 800 MG PO ×3 (09:51→17:47)
[2019-12-31] MEDS: PANTOPRAZOLE SODIUM IV 40 MG VIAL IV PUSH (09:52)
[2019-12-31] MEDS: ACETAMINOPHEN 325 MG TABLET 650 MG PO (09:59)
--- NOTE | 2019-12-31 10:57 | PM.PNGS ---
Progress Note: A&P Assessment and Plan (1) Thrombosis of right hepatic artery: Code(s): I74.8 - Embolism and thrombosis of other arteries Status: Acute Assessment and Plan: Pain associated with ischemic event continues to improve. No fever now for about 4 days. Okay to discharge patient from a surgical standpoint. Continue anticoagulant therapy on discharge. Today is day 7 of IV Zosyn therapy. May continue oral antibiotic therapy on discharge per ID's discretion. Follow up with Dr. Ogden in the office in 2 weeks. Follow up with her doctor who manages her lupus within 1-2 weeks after discharge. (2) Infarction of right lobe of liver: Code(s): K76.3 - Infarction of liver Status: Acute Assessment and Plan: Continues to improve. Fever resolved. Pain nearly resolved. 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 Others on hold. (4) SLE (systemic lupus erythematosus): Qualifiers: Systemic lupus erythematosus organ involvement: unspecified Systemic lupus erythematosus type: unspecified Qualified Code(s): M32.9 - Systemic lupus erythematosus, unspecified Code(s): M32.9 - Systemic lupus erythematosus, unspecified Status: Chronic Assessment and Plan: Follow-up with the specialist following her within 1-2 weeks after discharge. Additional Plan Discussed the patient's case and plan of care with Dr. Ogden. Subjective Subjective Date/Time Seen: 12/31/19 10:00 Patient reports: no new complaints and feels better Interval history: Patient seen and examined. Reports overall feeling well today. Denies any abdominal pain, nausea, or vomiting. States she is only very mildly tender, but much improved since the last few days. No new complaints. Review of Systems Review of Systems: All systems reviewed & are unremarkable except as noted in HPI and below Exam Const: General: comfortable, no acute distress, alert and awake Orientation/consciousness: patient oriented x3 GI: Inspection: normal to inspection and non-distended GI Palp: Yes abdominal tenderness (Very mild an epigastric area), Yes Soft to palpation, No Guarding due to palpation present (GI), No Rigid due to palpation and No Rebound tenderness present Auscultation: normal bowel sounds Neuro: General: moves all extremities and no focal motor deficits Extrem: General: normal to inspection, no calf tenderness and no edema Psych: Mental Status: mental status grossly normal Attitude: cooperative Insight: Good insight present (Psych) Judgement: Good judgement present (Psych) Objective Data Vital Signs Vital Signs: Vital Signs - 24 hr 12/30/19 14:00 12/30/19 21:34 12/31/19 06:00 Temperature 37.1 C 36.2 C L 36.2 C L Pulse Rate 84 81 85 Respiratory Rate 16 16 16 Blood Pressure 108/74 118/73 117/71 Pulse Oximetry 100 98 97 Intake/Output Intake/Output: Intake & Output 12/28/19 12/29/19 12/30/19 12/31/19 22:59 22:59 23:59 23:59 Intake Total 955 Output Total 1700 Balance -745 Meds/Results Medications: Active Medications Generic Name Dose Route Start Last Admin Trade Name Freq PRN Reason Stop Dose Admin Acetaminophen 650 mg 12/26/19 03:13 12/31/19 09:59 Tylenol Tablet PO 650 mg Q4H PRN Administration Mild Pain (1-3) or Fever Hydrocodone Bitart/Acetaminophen 1 tab 12/26/19 11:02 12/29/19 21:41 [place] 5-325 Mg PO 1 tab Q4H PRN Administration Pain Rated 4-6 Alprazolam 0.5 mg 12/25/19 04:46 Xanax PO TID PRN Anxiety Enoxaparin Sodium 60 mg 12/26/19 06:00 12/31/19 06:25 Lovenox SUB-Q 60 mg Q12H RADHA Administration Fluoxetine HCl 80 mg 12/26/19 09:00 12/31/19 09:51 Prozac PO 80 mg QAM RADHA Administration Gabapentin 800 mg 12/25/19 09:00 12/31/19 09:51 Neurontin PO
--- NOTE | 2019-12-31 12:39 | WPDINFPN2 ---
Progress Note: A&P Assessment and Plan (1) Liver abscess: Code(s): K75.0 - Abscess of liver Status: Acute Assessment and Plan: 1. Liver abscess, due to infarct. Stable size. BCs ng. Exam and symptoms improved 2. Lupus 3. Immunosuppressed 4. Asymptomatic bacteriuria REC PipTazo # 7 / 14 days, continue. Holding Belimumab and mycophenolate. Ok discharge planning for the above. No oral therapy needed thereafter Subjective Date/time seen: 12/31/19 12:39 Interval history: pain much better though not gone. Up out of bed without difficulty Good appetite Exam Narrative: Exam Narrative: afebrile Const: General: no acute distress Resp: Effort & Inspection: normal respiratory effort Auscultation: clear to auscultation bilaterally Other: normal percussion Cardio: Rate: regular rate Rhythm: regular rhythm Heart sounds: no gallops and no murmurs GI: Inspection: non-distended GI Palp: Yes Soft to palpation, Yes Tenderness to palpation present (GI) and No Guarding due to palpation present (GI) Percussion: Yes normal to percussion Auscultation: normal bowel sounds Other: no liver enlargement by percussion nor palpation Objective Data Vital Signs Vital Signs: Vital Signs - 24 hr 12/30/19 14:00 12/30/19 21:34 12/31/19 06:00 Temperature 37.1 C 36.2 C L 36.2 C L Pulse Rate 84 81 85 Respiratory Rate 16 16 16 Blood Pressure 108/74 118/73 117/71 Pulse Oximetry 100 98 97 Intake/Output Intake/Output: Intake & Output 12/28/19 12/29/19 12/30/19 12/31/19 22:59 22:59 23:59 23:59 Intake Total 955 Output Total 1700 Balance -745 Meds/Results Medications: Active Medications Generic Name Dose Route Start Last Admin Trade Name Freq PRN Reason Stop Dose Admin Acetaminophen 650 mg 12/26/19 03:13 12/31/19 09:59 Tylenol Tablet PO 650 mg Q4H PRN Administration Mild Pain (1-3) or Fever Hydrocodone Bitart/Acetaminophen 1 tab 12/26/19 11:02 12/29/19 21:41 [place] 5-325 Mg PO 1 tab Q4H PRN Administration Pain Rated 4-6 Alprazolam 0.5 mg 12/25/19 04:46 Xanax PO TID PRN Anxiety Enoxaparin Sodium 60 mg 12/26/19 06:00 12/31/19 06:25 Lovenox SUB-Q 60 mg Q12H RADHA Administration Fluoxetine HCl 80 mg 12/26/19 09:00 12/31/19 09:51 Prozac PO 80 mg QAM RADHA Administration Gabapentin 800 mg 12/25/19 09:00 12/31/19 09:51 Neurontin PO 800 mg TID RADHA Administration Hydroxychloroquine Sulfate 200 mg 12/25/19 08:00 12/31/19 09:51 Plaquenil PO 200 mg BIDWM RADHA Administration Piperacillin/Tazobactam/Dextrose 3.375 gm in 50 mls @ 100 mls/hr 12/25/19 01:00 12/31/19 06:55 Zosyn 3.375 Gm/D5w 50ml Pm IVPB Infused Q6HR [facility] Infusion Loratadine 10 mg 12/26/19 07:51 12/31/19 09:51 Claritin PO 10 mg DAILY PRN Administration runny nose Morphine Sulfate 2 mg 12/26/19 11:02 12/29/19 05:47 Morphine Sulfate Inj IV PUSH 2 mg Q4H PRN Administration Pain Rated 7-10 Non-Formulary Medication 200 mg 12/25/19 09:00 12/28/19 10:12 Belimumab [Benlysta] SUB-Q 01/24/20 09:01 Not Given WEEKLY [facility] Pantoprazole Sodium 40 mg 12/27/19 10:45 12/31/19 09:52 Protonix Iv IV PUSH 40 mg Q12HR RADHA Administration Polyethylene Glycol 17 gm 12/26/19 11:04 12/29/19 09:36 Miralax PO 17 gm QAM PRN Administration Constipation Radiology Results: ITS Impressions Abdomen/Pelvis CT 12/24/19 18:37 IMPRESSION: 1. Left liver lobe indeterminate lesion, could be focal nodular hyperplasia but follow-up liver MRI examination with contrast is recommended. 2. Nonspecific mild periportal edema. Chest X-Ray 12/24/19 19:06 IMPRESSION: Normal chest x-ray exam. Abdomen MRI 12/25/19 09:59 IMPRESSION: 1. Thrombus in right hepatic artery. 2. 2.1 cm cystic mass in right hepatic lobe, likely an infarct or abscess. Necrotic neoplasm cannot be excluded. Consider abdom
[2019-12-31 14:00] VITALS: BP 113/74; PULSE 91; RESP 18; TEMP 36.3; O2SAT 99
[2019-12-31] MEDS: LIDOCAINE HCL 1% LOCAL INJ 2 ML AMPUL 5 ML INFILTRATE (14:10)
--- NOTE | 2019-12-31 14:29 | PM.IMPN ---
Progress Note: A&P Assessment and Plan (1) Liver abscess: Code(s): K75.0 - Abscess of liver Status: Acute Assessment and Plan: On arrival, MRI abdomen pelvis showed 2.1 cm cystic mass in right hepatic lobe, likely an infarct or abscess. Necrotic neoplasm cannot be excluded. CT today shows stable 2.2 cm cystic mass and stable periportal low attenuation in medial segment of right hepatic lobe, likely edema or infarct. Infectious Disease evaluated the patient and recommend continuing IV Zosyn and also recommended a surgical consultation for possible IR drain. Surgery evaluated the patient and her pain and symptoms are most likely due to her infarction of the right hepatic lobe. He did not recommended any drainage at this time. Continue on IV Zosyn for now Infectious Disease and surgery following and greatly appreciate input Continue monitor her vital signs and fevers. (2) Abdominal pain: Code(s): R10.9 - Unspecified abdominal pain Status: Acute Assessment and Plan: Likely from abscess/thrombosis of right hepatic artery; other etiologies such cholecystitis, pancreatitis less likely given imaging results. The patient has been having increased pain over the previous few days prior to presentation; still having mild epigastric pain when pain medications wear off. Will continue pain control with PO and IV pain medications PRN Monitor Trend leukocytosis. Consult to General Surgery for further recommendations which are greatly appreciated (3) Thrombosis of right hepatic artery: Code(s): I74.8 - Embolism and thrombosis of other arteries Status: Acute Assessment and Plan: MRI abdomen pelvis showed thrombus in right hepatic artery. Could be secondary to vasculitis from lupus Continue SC Lovenox by weight Q 12 hr. The patient's initial coag panel on arrival was completely normal as well as her fibrinogen lab today was normal. Dr. Ogden wanted a Mussel Farmer consult. Dr. Moncada evaluated the patient and is ordering labs and will follow up in his office in 1 week. Will continue treating with anticoagulation and have her follow-up with her primary care provider for further evaluation (4) Acute febrile illness: Code(s): R50.9 - Fever, unspecified Status: Acute Assessment and Plan: After receiving the MRI results which shows the patient likely has a liver abscess which could be the underlying cause of her fevers. BC negative to date. The patient has been afebrile the last few days and is overall feeling better. ID consulted and appreciate input Continue supportive care with IV antibiotics, antipyretics, antiemetics as needed overnight. (5) SLE (systemic lupus erythematosus): Qualifiers: Systemic lupus erythematosus type: unspecified Systemic lupus erythematosus organ involvement: unspecified Qualified Code(s): M32.9 - Systemic lupus erythematosus, unspecified Code(s): M32.9 - Systemic lupus erythematosus, unspecified Status: Chronic Assessment and Plan: Will hold two of the patients home medications secondary to acute illness- Belimumab and mycophenolate Will continue Hydroxychloroquine. 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 Additional Plan Date of service was 12/24/2019 at 8 pm. Subjective Date/time seen: 12/31/19 14:29 Interval history: Date of Service 12/30/2019: The patient states her abdominal discomfort has improved and rated a 2/10 constantly. She is having less waxing and waning pain today and has not required any medications other than Tyle
--- NOTE | 2019-12-31 15:41 | PM.DS ---
DS: Diagnosis Admitting Diagnosis Admitting Diagnosis: Fever, unspecified Discharge Diagnosis (1) Liver abscess: Code(s): K75.0 - Abscess of liver Status: Acute Assessment and Plan: On arrival, MRI abdomen pelvis showed 2.1 cm cystic mass in right hepatic lobe, likely an infarct or abscess. Necrotic neoplasm cannot be excluded. CT today shows stable 2.2 cm cystic mass and stable periportal low attenuation in medial segment of right hepatic lobe, likely edema or infarct. Infectious Disease evaluated the patient and recommend continuing IV Zosyn as an outpatient for 1 week. The patient had a PICC line placed and will be discharged home with a continuous IV pump for her antibiotics. She will receive IV Zosyn 3.375 mg every 6 hours for 7 days. Surgery evaluated the patient and did not recommended any drainage at this time. (2) Abdominal pain: Code(s): R10.9 - Unspecified abdominal pain Status: Acute Assessment and Plan: Likely from abscess/thrombosis of right hepatic artery; other etiologies such cholecystitis, pancreatitis less likely given imaging results. The patient states her pain has been much improved over the last few days and she has not required any narcotic pain medications today. I will discharge her home with 10mg [place] 5/325 mg tablets in case her pain because intense and is not treated with Tylenol. Given warnings about narcotics. (3) Thrombosis of right hepatic artery: Code(s): I74.8 - Embolism and thrombosis of other arteries Status: Acute Assessment and Plan: MRI abdomen pelvis showed thrombus in right hepatic artery. Could be secondary to vasculitis from lupus The patient's initial coag panel on arrival was completely normal as well as her fibrinogen lab today was normal. Dr. Moncada evaluated the patient and is ordering labs and will follow up in his office in 1 week. Patient will be discharged home on Xarelto that she will continue for at least 6 months and will need to follow-up with her primary care provider and see what Dr. Moncada recommends when she follows up with him in 1 week. (4) Acute febrile illness: Code(s): R50.9 - Fever, unspecified Status: Acute Assessment and Plan: After receiving the MRI results which shows the patient likely has a liver abscess which could be the underlying cause of her fevers. BC negative to date. The patient has been afebrile the last few days and is overall feeling better. (5) SLE (systemic lupus erythematosus): Qualifiers: Systemic lupus erythematosus organ involvement: unspecified Systemic lupus erythematosus type: unspecified Qualified Code(s): M32.9 - Systemic lupus erythematosus, unspecified Code(s): M32.9 - Systemic lupus erythematosus, unspecified Status: Chronic Assessment and Plan: Will hold two of the patients home medications secondary to acute illness- Belimumab and mycophenolate Will continue Hydroxychloroquine. Will have her follow-up with her lupus specialist for further recommendations about restarting her medications. 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 (7) Abnormal urinalysis: Code(s): R82.90 - Unspecified abnormal findings in urine Status: Acute Assessment and Plan: The patient had her urine checked initially on arrival to the ER. Her urine culture grew group B strep but only [id number].. The patient is asymptomatic and not having any urinary issues at this time. The group B strep is most likely colonized and no treatment is necessary at this ti
[2020-01-02 22:08] LABS: Anti Nuclear Antibody Pattern Nuclear, Speckled
== END 2019-12-31 18:45 | disposition home or self-care (01) | DRG 442 ==
LOC: ANHED 19:51 → ANH2MED 20:16
PROVIDERS: Physician Assistant; Admitting Provider Family Medicine; Emergency Provider Emergency Medicine; PCP Family Medicine; Visit Provider Physician Assistant
DX: K75.0 Abscess of liver (principal); I74.8 Embolism and thrombosis of other arteries; M32.9 Systemic lupus erythematosus, unspecified; M35.00 Sjogren syndrome, unspecified
CPT/HCPCS: 36415; 36569; 71046; 74160; 74177; 74183; 80048; 80053; 81001; 81025; 83605; 83735; 85025; 85384; 85610; 85730; 86038; 86039; 86140; 87040; 87077; 87086; 87088; 93970; 96361; 96365; 96366; 96372; 96375; 99285; A9270; A9577; C1751; C9113; G0378; J0131; J1650; J1885; J2270; J2543; J2765; J3475; J7030; J7120; Q9967

== ENCOUNTER → 2020-01-18 09:40 | Outpatient (CLI) | payer BC, SELFPAY ==
--- NOTE | ~2020-01-18 | US_ITS ---
EXAMINATION: US abdomen complete DATE: 01/18/2020 10:31 INDICATION: Liver abscess TECHNIQUE: Multiple grayscale and Doppler ultrasound images of the abdomen were obtained. COMPARISON: CT, 12/28/2019; MRI, 12/25/2019 FINDINGS: The head, body, and tail of the pancreas are normal. There is extensive 0 cm hypoechoic le viridiana in the right hepatic lobe corresponding to the previously described liver mass. This appears to have slightly decreased in size since the recent comparison examinations. No surface nodularity. Norm al hepatopetal flow in the main portal vein. The gallbladder is normal with no abnormal wall thickeni ng, pericholecystic fluid or stones. The normal common bile duct measures 3 mm. There was no sonograp hic Lawson sign. The visualized portions of the aorta and inferior vena cava are normal. The right kidney measures 10.0 x 3.3 x 5.8 cm. The left kidney measures 10.0 x 4.3 x 4.3 cm. The kidn eys demonstrate normal parenchymal echogenicity. There is no hydronephrosis. The spleen is normal in appearance and measures 9.2 cm. IMPRESSION: 1. Right hepatic lobe lesion with apparent slight decrease in size. Differential is as previously junior cribed abscess, infarct, possibly necrotic neoplasm. Follow-up MRI without and with contrast in three months is recommended. Reviewed, dictated and finalized at location B. IMPRESSION: 1. Right hepatic lobe lesion with apparent slight decrease in size. Differentia l is as previously described abscess, infarct, possibly necrotic neoplasm. Foll ow-up MRI without and with contrast in three months is recommended.
== END ==
PROVIDERS: Visit Provider Internal Medicine Infectious Disease
DX: K76.9 Liver disease, unspecified (principal)
CPT/HCPCS: 76700

== ENCOUNTER → 2020-01-18 09:43 | Outpatient (CLI) | payer BC, SELFPAY ==
--- NOTE | ~2020-01-18 | XR_ITS ---
EXAMINATION: XR foot LT min 3V, XR foot RT min 3V, XR ankle RT 2V, XR ankle LT 2V DATE: 01/18/2020 10:44 INDICATION: Systemic lupus erythematous with bilateral foot and ankle pain TECHNIQUE: 1. Anteroposterior and lateral view of the left ankle were obtained. 2. Dorsoplantar, two oblique and lateral views of the left foot were obtained. 3. Anteroposterior and lateral view of the right ankle were obtained. 4. Dorsoplantar, two oblique and lateral views of the right foot were obtained. COMPARISON: None. FINDINGS: Alignment of the lateral feet and ankles is normal. No fracture or osteochondral lesion. Joint spaces are well maintained with no focal osteophytosis or erosions. No ankle joint effusions. The soft tiss ues are unremarkable. IMPRESSION: 1. Negative bilateral foot and ankle radiographs. Reviewed, dictated and finalized at location A. IMPRESSION: 1. Negative bilateral foot and ankle radiographs. IMPRESSION: 1. Negative bilateral foot and ankle radiographs. IMPRESSION: 1. Negative bilateral foot and ankle radiographs.
--- NOTE | ~2020-01-18 | XR_ITS ---
EXAMINATION: XR hand LT min 3V, XR hand RT min 3V DATE: 01/18/2020 10:44 INDICATION: Systemic lupus erythematous with joint pain at the bilateral hands. TECHNIQUE: 1. Posteroanterior, oblique and lateral views of the left hand were obtained. 2. Posteroanterior, oblique and lateral views of the right hand were obtained. COMPARISON: None. FINDINGS: Normal alignment at both hands. No fracture. Joint spaces are relatively preserved bilaterally with n o osteophytosis or erosions. Soft tissues are unremarkable. IMPRESSION: 1. Negative bilateral hand radiographs. Reviewed, dictated and finalized at location A. IMPRESSION: 1. Negative bilateral hand radiographs.
== END ==
PROVIDERS: Visit Provider Physician Assistant Medical
DX: M32.19 Other organ or system involvement in systemic lupus erythematosus (principal); M35.01 Sjogren syndrome with keratoconjunctivitis; Z79.899 Other long term (current) drug therapy
CPT/HCPCS: 73130; 73600; 73630

== ENCOUNTER 2020-03-18 07:41 | Outpatient (CLI) | payer BC, SELFPAY ==
--- NOTE | ~2020-03-18 | CT_ITS ---
EXAMINATION: CT abdomen pelvis w con DATE: 03/18/2020 08:21 INDICATION: Hepatic artery thrombosis. TECHNIQUE: Computed tomography (CT) of the abdomen and pelvis was performed with 100 mL Omnipaque 350 intravenous contrast. Automated exposure control and iterative reconstruction technique were employe d. The dose-length product was 215.37 mGy-cm. COMPARISON: CT abdomen 12/28/2019, 12/24/2019 FINDINGS: The visualized portions of the lung bases are clear without pneumonia or pleural effusion. The heart size is normal. No pericardial effusion. There is a 1.0 cm hypoechoic mass in right hepatic lobe. The vessels in the liver are normal. The spleen, gallbladder, pancreas, adrenal glands, and ki dneys are normal. There are no dilated loops of bowel. The appendix is normal. There are no pathologi bogdan enlarged lymph nodes. There is no free intraperitoneal fluid. There is moderate lower lumbar sp ondylosis. There is a chronic compression fracture of T12. IMPRESSION: 1. 1.0 cm hypoechoic mass in right hepatic lobe, decreased from 2.2 cm on 12/28/2019, likely benign. Reviewed, dictated and finalized at location A. IMPRESSION: 1. 1.0 cm hypoechoic mass in right hepatic lobe, decreased from 2.2 cm on 020, likely benign.
== END 2020-03-18 07:42 | disposition home or self-care (01) ==
PROVIDERS: PCP Family Medicine; Visit Provider Internal Medicine Hematology & Oncology
DX: I74.8 Embolism and thrombosis of other arteries (principal)
CPT/HCPCS: 74177; Q9967

== ENCOUNTER → 2020-04-24 07:49 | Outpatient (CLI) | payer BC, SELFPAY ==
--- NOTE | ~2020-04-24 | XR_ITS ---
EXAMINATION: XR chest 2V 04/24/2020 08:23 INDICATION: Systemic lupus erythematosus. PROCEDURE: 2 view chest COMPARISON: Comparison to multiple prior studies sequentially, with oldest reviewed study dated 05/2016. FINDINGS: The lungs are clear. The cardiomediastinal silhouette is within normal limits. There are no pleural effusions. There is no pneumothorax suspected. IMPRESSION: 1: NO ACUTE CARDIOPULMONARY DISEASE. Reviewed, dictated and finalized at location A.
--- NOTE | ~2020-04-24 | US_ITS ---
EXAMINATION: US right upper quadrant EXAM DATE: 04/24/2020 08:19 INDICATION: Rule out abscess of liver and blood clot in hepatic artery in December. Now better. TECHNIQUE: Multiple grayscale and Doppler images of the abdomen right upper quadrant were obtained (b y a technologist who performed the scan) and subsequently reviewed. Comparison is made to prior exami nation from 01/18/2020. FINDINGS: The pancreatic head and body are normal in appearance. The pancreatic tail is not visualized. The l iver has normal echogenicity and contour. Vague small hypoechoic liver lesion in the left liver lobe , same lesion previously described, region appears unchanged at about 1.5 cm diameter. There is no e vidence of intrahepatic biliary duct dilation. Portal venous flow was seen in the hepatopedal, anh l direction and has normal Doppler waveform. The hepatic veins are anechoic, consistent with patency. No right-sided hydronephrosis. Common bile duct measures 4 mm, which is normal. The gallbladder wall is normal in thickness, with ex pected amount of distention. No sonographic evidence of pericholecystic fluid. There is no cholelit hiases. Technologist performing exam reports patient did not demonstrate sonographic Lawson's sign. Please note that this sign is less reliable in patients who have received pain medication. IMPRESSION: Small left liver lobe region stable, benign finding. Reviewed, dictated and finalized at location B.
== END ==
DX: M32.19 Other organ or system involvement in systemic lupus erythematosus (principal); Z79.899 Other long term (current) drug therapy; R11.0 Nausea
CPT/HCPCS: 71046; 76705

== ENCOUNTER → 2020-10-15 08:19 | Outpatient (CLI) | payer BC, SELFPAY ==
--- NOTE | ~2020-10-15 | CT_ITS ---
EXAMINATION: CT abdomen pelvis w con DATE: 10/15/2020 09:04 INDICATION: Right upper quadrant abdominal pain. Hepatic artery thrombosis. TECHNIQUE: Computed tomography (CT) of the abdomen and pelvis was performed with 100 mL Omnipaque 350 intravenous contrast. Automated exposure control and iterative reconstruction technique were employe d. The dose-length product was 231.99 mGy-cm. COMPARISON: CT abdomen and pelvis 03/18/2020, 12/24/2019 FINDINGS: The visualized portions of the lung bases are clear without pneumonia or pleural effusion. The heart size is normal. No pericardial effusion. There is an 8 mm cyst in right hepatic lobe, decre ased from 10 mm on 03/18/20. The liver vessels are unremarkable. The spleen, pancreas, adrenal glands, and left kidney are normal. There is a 4 mm cyst in right kidney. There is a small area of cortical thinning in right kidney. There is a 2.7 cm corpus luteum cyst in left ovary. There are no dilated lo ops of bowel. The appendix is not visualized. There are no pathologically enlarged lymph nodes. There is a small volume of pelvic ascites, likely physiologic. There is moderate lower lumbar spondylosis. IMPRESSION: 1. No etiology for the patient's symptoms. Reviewed, dictated and finalized at location A. [employer]
== END ==
PROVIDERS: Visit Provider Internal Medicine Hematology & Oncology
DX: I74.8 Embolism and thrombosis of other arteries (principal)
CPT/HCPCS: 74177; Q9967

== ENCOUNTER 2020-11-03 09:43 | Outpatient (CLI) | payer BC, SELFPAY ==
[2020-11-03 09:56] LABS: Basophils Percent Auto 0.6 % (0.2-1.2); Eosinophils Percent Auto 0.6 % (0-4.4); Hematocrit 40.9 % (37.0-47.0); Hemoglobin 13.3 g/dL (12.0-15.0); Immature Granulocyte Absolute 0.01 K/mm3 (0.00-0.031); Immature Granulocyte Percent A 0.3 % (0-0.5); Lymphocytes Absolute Auto 0.76 K/mm3 (0.9-3.2); Lymphocytes Percent Auto 23.8 % (18.3-44.2); Mean Corpuscular HGB Conc 32.5 g/dl (32-36); Mean Corpuscular Hemoglobin 31.1 pg (26-34); Mean Corpuscular Volume 95.8 fl (80-100); Monocytes Absolute Auto 0.4 K/mm3 (0.1-0.6); Monocytes Percent Auto 11.6 % (2.6-8.5); Neutrophils Percent Auto 63.1 % (45.5-73.1); Platelet Count Result 249 k/mm3 (150-375); Red Blood Count 4.27 M/mm3 (4.2-5.4); Red Cell Distribution Width 12.2 % (11.5-14.5); White Blood Count 3.2 K/mm3 (4.5-10.0)
[2020-11-03 11:25] LABS: INR 0.9; Prothrombin Time 12.6 Seconds (11.1-14.7)
[2020-11-03 11:26] LABS: Partial Thromboplastin Time 25.6 SECONDS (22.3-36.8)
== END 2020-11-03 09:44 | disposition home or self-care (01) ==
LOC: ANHLAB 09:45
PROVIDERS: PCP Family Medicine; Visit Provider Internal Medicine Hematology & Oncology
DX: I74.8 Embolism and thrombosis of other arteries (principal)
CPT/HCPCS: 36415; 85025; 85610; 85730

== ENCOUNTER → 2021-08-25 11:24 | Outpatient (CLI) | payer BC, SELFPAY ==
--- NOTE | ~2021-08-25 | US_ITS ---
EXAMINATION: US transvaginal DATE: 08/25/2021 11:50 INDICATION: Pelvic and perineal pain TECHNIQUE: Multiple endovaginal sonographic images of the pelvis were obtained. COMPARISON: 10/15/2020 FINDINGS: The uterus measures 6.9 x 3.7 x 4.7 cm. The endometrial complex measures 4.1 mm. The IUD is in expected position. The right ovary measures 3.7 x 2.2 x 3.1 cm. The left ovary measures 2.8 x 1.6 x 2.1 cm. There is normal vascular flow in the ovaries. There is no free fluid in the pelvis. IMPRESSION: 1. No sonographic correlate for the patient's symptoms. IUD in expected position. Reviewed, dictated and finalized at location B. IMPRESSION: 1. No sonographic correlate for the patient's symptoms. IUD in expected positio n.
== END ==
PROVIDERS: Visit Provider Obstetrics & Gynecology
DX: R10.2 Pelvic and perineal pain (principal); Z97.5 Presence of (intrauterine) contraceptive device
CPT/HCPCS: 76830

== ENCOUNTER 2024-01-17 07:56 | Outpatient (CLI) | payer OTHER, SELFPAY ==
--- NOTE | ~2024-01-17 | US_ITS ---
EXAMINATION: US OB transvaginal DATE: 01/17/2024 08:27 INDICATION: Uncertain dating of during first trimester TECHNIQUE: Real-time pelvic ultrasound utilizing transvaginal probe was performed. The interpreting r adiologist was not present for the study. COMPARISON: None. FINDINGS: The uterus measures 9.1 x 5.5 x 6.2 cm. There is an intrauterine gestational sac. A yolk sac and fet al pole are identified. The crown rump length measures 7 mm, which correlates with an estimated gesta tional age of 6 weeks and 4 days. heart motion is identified measuring 112 beats per minute (bp m) by M-mode Doppler. The right ovary measures 3.0 x 1.0 x 3.0 cm. The left ovary measures 3.3 x 1.6 x 2.1 cm. There is a s mall amount of anechoic free fluid in the pelvis. IMPRESSION: 1. Single living fetus with heart rate of 112 bpm. 2. Gestational age by ultrasound of 6 weeks 4 day(s) +/- 4 day(s) with ultrasound estimated date of delivery (DAVE) of 09/07/2024. Reviewed, dictated and finalized at location A. IMPRESSION: 1. Single living fetus with heart rate of 112 bpm. 2. Gestational age by ultrasound of 6 weeks 4 day(s) +/- 4 day(s) with ultraso und estimated date of delivery (DAVE) of 09/07/2024.
== END 2024-01-17 07:57 ==
PROVIDERS: PCP Obstetrics & Gynecology Gynecology; Visit Provider Obstetrics & Gynecology Gynecology
DX: Z36.87 Encounter for antenatal screening for uncertain dates (principal); Z3A.01 Less than 8 weeks gestation of pregnancy
CPT/HCPCS: 76817